=== PATIENT | male | born 1950 | race Caucasian/White ===

== ENCOUNTER 2018-07-21 08:16 | Outpatient (CLI) | payer MEDICARE, BC, SELFPAY ==
[2018-07-21 08:53] LABS: Absolute Basophil Count 0.01 k/cumm (0.0-0.2); Absolute Lymphocyte Count 1.72 k/cumm (1.2-3.4); Absolute Monocyte Count 0.43 k/cumm (0.11-0.7); Absolute Neutrophil Count 2.02 k/cumm (1.2-6.7); Basophils % 0.2; Eosinophils % 2.3; HCT 40.3 % (40.0-50.0); HGB 14.3 g/dL (13.5-17.5); Lymphocytes % 40.2; Mean Corp. HGB Concentration 35.5 g/dL (32.0-36.0); Mean Corpuscular Volume 87.4 fL (80-95); Mean Platelet Volume 9.6 fL (8.0-11.0); Neutrophils % 47.3; Platelet Count 160 x1000/uL (130-400); RBC 4.61 m/cumm (4.50-6.00); RBC Distribution Width 12.3 % (11.8-14.1); White Blood Cell Count 4.28 k/cumm (4.4-10.8)
[2018-07-21 09:39] LABS: Hemoglobin A1C 5.1 % (4.5-6.2)
[2018-07-21 09:49] LABS: ALT 38 U/L (12-78); AST 25 U/L (15-37); Albumin 4.2 g/dL (3.4-5.0); Alkaline Phosphatase 70 U/L (46-116); Anion Gap 6.5 mmol/L (3-11); BUN 17 mg/dL (7-18); Bilirubin, Total 0.7 mg/dL (0.2-1.0); CO2 28.5 mmol/L (21.0-32.0); CREATININE 0.79 mg/dL (0.70-1.30); Calcium 9.2 mg/dL (8.5-10.1); Chloride 103 mmol/L (98-107); Cholesterol 180 mg/dL (50-200); Glucose 95 mg/dL (70-100); HDL Cholesterol 46 mg/dL (40-60); LDL CHOLESTEROL 94 mg/dL (<100); Magnesium 1.8 mg/dL (1.8-2.4); Potassium 4.4 mmol/L (3.5-5.1); Sodium 138 mmol/L (136-145); TSH 1.89 uIU/mL (0.358-3.74); Total Protein 7.2 g/dL (6.4-8.2); Triglyceride 326 mg/dL (30-150)
== END 2018-07-21 08:36 ==
PROVIDERS: Visit Provider Nurse Practitioner Adult Health
DX: E88.81 Metabolic syndrome and other insulin resistance (principal); E78.5 Hyperlipidemia, unspecified; I10 Essential (primary) hypertension; I25.10 Atherosclerotic heart disease of native coronary artery without angina pectoris
CPT/HCPCS: 36415; 80053; 80061; 83721; 83036; 83735; 84443; 85025

== ENCOUNTER 2018-09-29 01:26 | Outpatient (CLI) | payer MEDICARE, BC, SELFPAY ==
--- NOTE | 2018-09-29 16:00 | DI.RAD_ITS ---
SYMPTOMS/DIAGNOSIS: OSTEOPOROSIS SCREENING, ADT FOR PROSTATE CA, C61 DEXA SCAN: DEXA scan was performed according to the usual protocol. Lumbar spine scanning shows a T score of 1.2. Left hip scanning shows a T score of 0.1 with left femoral neck T score of 0. Lateral vertebral scanogram shows questioned minimal anterior compression fracture of what appears to be T11 vertebral body of uncertain age; this may represent developmental wedging. Left forearm scanning shows a T score of 0.7. CONCLUSION: Findings consistent with normal bone density according to the WHO criteria. Question T11 mild vertebral wedging, old fracture versus developmental finding. Radiographs of the thoracolumbar region recommended for further evaluation.
== END 2018-09-29 01:46 ==
PROVIDERS: PCP Nurse Practitioner Adult Health; Visit Provider Radiology Radiation Oncology
DX: C61 Malignant neoplasm of prostate (principal); Z13.820 Encounter for screening for osteoporosis; Z79.899 Other long term (current) drug therapy
CPT/HCPCS: 77080

== ENCOUNTER 2018-10-12 09:17 | Outpatient (CLI) | payer MEDICARE, BC, SELFPAY ==
[2018-10-13 09:14] LABS: PSA, Diagnostic <0.1 ng/ml (0-4.5)
[2018-10-15 12:44] LABS: Testosterone, Total 7.9 ng/dL (240-950)
== END 2018-10-12 09:37 ==
PROVIDERS: PCP Nurse Practitioner Adult Health; Visit Provider Radiology Radiation Oncology
DX: C61 Malignant neoplasm of prostate (principal)
CPT/HCPCS: 36415; 84403; 84153

== ENCOUNTER 2018-12-17 11:32 | Outpatient (CLI) | payer BC, SELFPAY ==
[2018-12-18 09:10] LABS: PSA, Diagnostic <0.1 ng/ml (0-4.5)
[2018-12-20 15:15] LABS: Testosterone, Total 14 ng/dL (240-950)
== END 2018-12-17 11:52 ==
PROVIDERS: PCP Nurse Practitioner Adult Health; Visit Provider Radiology Radiation Oncology
DX: C61 Malignant neoplasm of prostate (principal)
CPT/HCPCS: 36415; 84403; 84153

== ENCOUNTER 2019-01-24 22:47 | Emergency (ER) | payer BC, SELFPAY ==
[2019-01-24] VITALS (9 sets, daily range): BP systolic 110–159; BP diastolic 57–80; PULSE 67–81; RESP 14–18; TEMP 37.1; O2SAT 92–99
--- NOTE | 2019-01-24 22:49 | W.ED.GENAD ---
Discharge Plan Disposition Patient Disposition: HOME Condition: Stable Discharge Details Chief Complaint: Chest Pain Clinical Impression: Chest pain Primary Care Provider: Aniat Sexton ED Provider: Chau Chao Home Meds and New Rx's Prescriptions: No Action atorvastatin [Lipitor] 40 mg Tablet 40 mg PO HS RF: 0 aspirin 325 mg Tablet 325 mg PO HS RF: 0 metoprolol succinate [Toprol XL] 100 mg Tablet Extended Release 24 Hr 100 mg PO DAILY RF: 0 lisinopril 5 mg Tablet 5 mg PO DAILY RF: 0 calcium citrate-vitamin D3 [Citracal + D Maximum] 315-250 mg-unit Tablet 1 tab PO HS RF: 0 tlns-khcsjg-bjsgzkzv-D3-C-Mn 500-400-667 mg-mg-unit Capsule 1 cap PO DAILY RF: 0 multivitamin Capsule 1 cap PO DAILY RF: 0 [place]-3 350 mg-235 mg- 90 mg-597 mg Capsule,Delayed Release(Dr/Ec) 1 cap PO DAILY RF: 0 Lupron Depot (3 month) 11.25 mg Syringe Kit IM DIRECTED RF: 0 Discharge Instructions Instructions: Chest Pain (ED) Additional Instructions: follow up this week with your primary care provider return to the emergency department for worsening pain, vomit, difficulty breathing or you have the pain and become sweaty Medical Decision Making 68 yo male with hx of cad s/p stent to lad per pt in early , htn, hld, who comes in with chief complaint of chest tightness that started this morning with radiation to the left scapula. Denies n/v, diaphoresis, dyspnea. Denies any recent fevers or cough. He is speaking in full sentences in no distress. Will give asa and obtain troponin, ekg nondianostic for acute mi. No evidence of dvt and no hypoxia or tachycardia so doubt PE. No tearing back pain and normal vascular exam so doubt dissection at this time pt remains stable, initial lab work and xray on my read (vrad read still pending) unremarkable. He remains well in no distress. I had discussion with the pt and after detailed discussion of observation admission vs performing delta troponin and ecg in the ED he has chosen to perform delta troponin and ecg after discussing risks and benefits of both and has the capacity to make his own decisions. Will obtain delta troponi nand ecg and continue to monitor pt asymptomatic, second ekg and troponin unchanged. Will d/c home and advised f/u with pcp and return precautions given Differential Diagnosis nstemi, angina, pe, dissection Imaging Data Radiologic Study: Attestation: I personally reviewed and interpreted this imaging study as follows: Imaging: X-Ray Radiologist's impression: no acute findings Lab Data Lab results reviewed: Yes I reviewed the patient's lab results. ECG Data Attestation: I personally reviewed and interpreted this ECG (s) as follows: Prior ECG tracings: not available for review Interpretation: sinus rhyhtm, rate of 65m ,pr 148, qtc 410 2nd ekg shows sinus rhythm, rate of 68, pr 162, qtc 427, no acute st t wave ischemic changes HPI General Mode of arrival: ambulatory. Date/Time Provider Initiated Documentation: 01/24/19 22:49. Limitations to Documentation: no limitations. Information obtained by: patient. History of Present Illness 68 year old M presents to the emergency department with the chief complaint of chest pain, described as moderate, with intensity rated at 6. Quality is described as other (tightness), and is localized to the chest. Patient reports radiation to back. Patient started experiencing this hour(s) (4) and it has been constant. No relieving factors improve symptom(s), No exacerbating factors reported . Patient notes no other symptoms.. Patient did receive the following treatments prior to arrival, other (antacids) Related Data Home Medications Medication Instructions Recorded Confirmed aspirin 325 mg PO HS 01/24/19 01/24/19 atorvastatin [Lipitor] 40 mg PO HS 01/24/19 01/24/19 calcium citrate-vitamin D3 1 tab PO HS 01/24/19 01/24/19 [Citracal + D Maximum] dxqe-wfumpx-ywuzyqoe-D3-C-Mn 1 cap PO DAILY 01/24/19 01/24/19 leuprolide (3 month) [Lupron Depot IM DIRECTED 01/24/19 (3 month)] lisinopril 5 mg PO DAILY 01/24/19 01/24/19 metoprolol succinate [Toprol XL] 100 mg PO DAILY 01/24/19 01/24/19 multivitamin 1 cap PO DAILY 01/24/19 01/24/19 omega 3-jvw-nkw-fish oil [[place]-3] 1 cap PO DAILY 01/24/19 01/24/19 Allergies Allergy/AdvReac Type Severity Reaction Status Date / Time No Known Allergies Allergy Unverified 01/24/19 23:23 Review of Systems Review of Systems All systems reviewed & are unremarkable except as noted in HPI and below Constitutional Denies chills, Denies fever(s) and Denies weakness Cardiovascular Denies dyspnea Respiratory Denies dyspnea Gastrointestinal Denies abdominal pain, Denies nausea and Denies vomiting Musculoskeletal Denies joint swelling Integumentary/Breasts Denies rash Neurologic Denies weakness PFS Social History Smoking/Tobacco Use Status: Never Substance use type: does not use Do you feel safe at home: Yes Do you feel safe in your relationship?: Yes Exam Const General: no acute distress Orientation: alert HENMT Head: normal to inspection Ears: external ears normal General nose exam: external nose normal Mouth: moist mucous membranes Eyes General: appearance normal, both eyes and all related structures Neck Neck: normal visual inspection Resp Effort & Inspection: normal respiratory effort and able to speak in complete sentences Cardio Rate: regular rate Skin General skin exam: no rashes or lesions noted Neuro General: alert and oriented x3 Extrem General: normal to inspection Psych Mental Status: mental status grossly normal
--- NOTE | 2019-01-24 22:56 | ED.GENADUL_ITS ---
Discharge Plan Disposition Patient Disposition: HOME Condition: Stable Discharge Details Chief Complaint: Chest Pain Clinical Impression: Chest pain Primary Care Provider: Anita Sexton ED Provider: Chau Chao Home Meds and New Rx's Prescriptions: No Action atorvastatin [Lipitor] 40 mg Tablet 40 mg PO HS RF: 0 aspirin 325 mg Tablet 325 mg PO HS RF: 0 metoprolol succinate [Toprol XL] 100 mg Tablet Extended Release 24 Hr 100 mg PO DAILY RF: 0 lisinopril 5 mg Tablet 5 mg PO DAILY RF: 0 calcium citrate-vitamin D3 [Citracal + D Maximum] 315-250 mg-unit Tablet 1 tab PO HS RF: 0 pnzz-kowcrn-jwvnxddi-D3-C-Mn 500-400-667 mg-mg-unit Capsule 1 cap PO DAILY RF: 0 multivitamin Capsule 1 cap PO DAILY RF: 0 [place]-3 350 mg-235 mg- 90 mg-597 mg Capsule,Delayed Release(Dr/Ec) 1 cap PO DAILY RF: 0 Lupron Depot (3 month) 11.25 mg Syringe Kit IM DIRECTED RF: 0 Discharge Instructions Instructions: Chest Pain (ED) Additional Instructions: follow up this week with your primary care provider return to the emergency department for worsening pain, vomit, difficulty breathing or you have the pain and become sweaty Medical Decision Making 68 yo male with hx of cad s/p stent to lad per pt in early , htn, hld, who comes in with chief complaint of chest tightness that started this morning with radiation to the left scapula. Denies n/v, diaphoresis, dyspnea. Denies any recent fevers or cough. He is speaking in full sentences in no distress. Will give asa and obtain troponin, ekg nondianostic for acute mi. No evidence of dvt and no hypoxia or tachycardia so doubt PE. No tearing back pain and normal vascular exam so doubt dissection at this time pt remains stable, initial lab work and xray on my read (vrad read still pending) unremarkable. He remains well in no distress. I had discussion with the pt and after detailed discussion of observation admission vs performing delta troponin and ecg in the ED he has chosen to perform delta troponin and ecg after discussing risks and benefits of both and has the capacity to make his own decisions. Will obtain delta troponi nand ecg and continue to monitor pt asymptomatic, second ekg and troponin unchanged. Will d/c home and advised f/u with pcp and return precautions given Differential Diagnosis nstemi, angina, pe, dissection Imaging Data Radiologic Study: Attestation: I personally reviewed and interpreted this imaging study as follows: Imaging: X-Ray Radiologist's impression: no acute findings Lab Data Lab results reviewed: Yes I reviewed the patient's lab results. ECG Data Attestation: I personally reviewed and interpreted this ECG (s) as follows: Prior ECG tracings: not available for review Interpretation: sinus rhyhtm, rate of 65m ,pr 148, qtc 410 2nd ekg shows sinus rhythm, rate of 68, pr 162, qtc 427, no acute st t wave ischemic changes HPI General Mode of arrival: ambulatory . Date/Time Provider Initiated Documentation: 01/24/19 22:49 . Limitations to Documentation: no limitations . Information obtained by: patient . History of Present Illness 68 year old M presents to the emergency department with the chief complaint of chest pain, described as moderate, with intensity rated at 6. Quality is described as other (tightness), and is localized to the chest. Patient reports radiation to back. Patient started experiencing this hour(s) (4) and it has been constant. No relieving factors improve symptom(s), No exacerbating factors reported . Patient notes no other symptoms.. Patient did receive the following treatments prior to arrival, other (antacids) Related Data Home Medications Medication Instructions Recorded Confirmed aspirin 325 mg PO HS 01/24/19 01/24/19 atorvastatin [Lipitor] 40 mg PO HS 01/24/19 01/24/19 calcium citrate-vitamin D3 1 tab PO HS 01/24/19 01/24/19 [Citracal + D Maximum] woyn-uxnjkp-lkmnzbaf-D3-C-Mn 1 cap PO DAILY 01/24/19 01/24/19 leuprolide (3 month) [Lupron Depot IM DIRECTED 01/24/19 (3 month)] lisinopril 5 mg PO DAILY 01/24/19 01/24/19 metoprolol succinate [Toprol XL] 100 mg PO DAILY 01/24/19 01/24/19 multivitamin 1 cap PO DAILY 01/24/19 01/24/19 omega 7-tjo-jkv-fish oil [[place]-3] 1 cap PO DAILY 01/24/19 01/24/19 Allergies Allergy/AdvReac Type Severity Reaction Status Date / Time No Known Allergies Allergy Unverified 01/24/19 23:23 Review of Systems Review of Systems All systems reviewed & are unremarkable except as noted in HPI and below Constitutional Denies chills, Denies fever(s) and Denies weakness Cardiovascular Denies dyspnea Respiratory Denies dyspnea Gastrointestinal Denies abdominal pain, Denies nausea and Denies vomiting Musculoskeletal Denies joint swelling Integumentary/Breasts Denies rash Neurologic Denies weakness PFS Social History Smoking/Tobacco Use Status: Never Substance use type: does not use Do you feel safe at home: Yes Do you feel safe in your relationship?: Yes Exam Const General: no acute distress Orientation: alert HENMT Head: normal to inspection Ears: external ears normal General nose exam: external nose normal Mouth: moist mucous membranes Eyes General: appearance normal, both eyes and all related structures Neck Neck: normal visual inspection Resp Effort & Inspection: normal respiratory effort and able to speak in complete sentences Cardio Rate: regular rate Skin General skin exam: no rashes or lesions noted Neuro General: alert and oriented x3 Extrem General: normal to inspection Psych Mental Status: mental status grossly normal
[2019-01-24] MEDS: Aspirin 81 MG CHEW 324 MG CH (23:05)
[2019-01-24 23:23] LABS: Abs Immature Grans 0.02 k/cumm (0.0-0.09); Absolute Basophil Count 0.01 k/cumm (0.0-0.2); Absolute Lymphocyte Count 1.35 k/cumm (1.2-3.4); Absolute Monocyte Count 0.53 k/cumm (0.11-0.7); Absolute Neutrophil Count 2.78 k/cumm (1.2-6.7); Basophils % 0.2; Eosinophils % 2.1; HCT 37.5 % (40.0-50.0); HGB 13.6 g/dL (13.5-17.5); Immature Grans % 0.4; Lymphocytes % 28.2; Mean Corp. HGB Concentration 36.3 g/dL (32.0-36.0); Mean Corpuscular Hemoglobin 31.6 pg (27.0-33.0); Mean Platelet Volume 9.7 fL (8.0-11.0); Monocytes % 11.1; Platelet Count 134 x1000/uL (130-400); RBC 4.31 m/cumm (4.50-6.00); RBC Distribution Width 12.6 % (11.8-14.1); White Blood Cell Count 4.79 k/cumm (4.4-10.8)
--- NOTE | 2019-01-24 23:35 | DI.RAD_ITS ---
SYMPTOMS/DIAGNOSIS: CHEST PAIN CHEST X-RAY, PORTABLE AP VIEW: No priors. The heart is normal in size. The lungs are clear. The mediastinal structures and pleura appear intact. IMPRESSION: Normal chest.
[2019-01-24 23:38] LABS: ALT 30 U/L (12-78); AST 26 U/L (15-37); Albumin 3.9 g/dL (3.4-5.0); Alkaline Phosphatase 68 U/L (46-116); Anion Gap 6.9 mmol/L (3-11); BUN 18 mg/dL (7-18); CO2 26.1 mmol/L (21.0-32.0); CREATININE 0.77 mg/dL (0.70-1.30); Calcium 8.9 mg/dL (8.5-10.1); Chloride 105 mmol/L (98-107); Glucose 106 mg/dL (70-100); Lipase 158 U/L (73-393); Magnesium 1.9 mg/dL (1.8-2.4); Sodium 138 mmol/L (136-145); Total Protein 7.1 g/dL (6.4-8.2)
[2019-01-24 23:41] LABS: Troponin I < 0.02 ng/mL (0.00-0.06)
[2019-01-24 23:43] LABS: INR 0.9 (0.9-1.1); PTT Activated 20.7 sec (21.0-31.4); Prothrombin Time 9.4 sec (9.3-11.0)
[2019-01-24 23:54] LABS: Bilirubin, Direct 0.13 mg/dL (0.00-0.20); Bilirubin, Total 0.5 mg/dL (0.2-1.0)
[2019-01-25] VITALS (17 sets, daily range): BP systolic 104–123; BP diastolic 56–68; PULSE 57–68; RESP 10–21; O2SAT 94–97
--- NOTE | 2019-01-25 | DI.VRAD_ITS ---
EXAM: XR Chest, 1 View EXAM DATE/TIME: 01/24/2019 10:57 PM CLINICAL HISTORY: 68 years old, male; Pain; Chest pain; Type not specified TECHNIQUE: XR of the chest, 1 view. COMPARISON: No relevant prior studies available. FINDINGS: Lungs: Unremarkable. No consolidation. Pleural space: Unremarkable. No pleural effusion. No pneumothorax. Heart/Mediastinum: Unremarkable. No cardiomegaly. Bones/joints: Unremarkable. IMPRESSION: No acute findings. Dictated and Authenticated by: Chau Sheikh MD. Ordering:RIOS Ritchie MD
--- NOTE | 2019-01-25 00:28 | NUR.NOTE ---
Nursing Note: chest pressure subsided, taking po fluids well, resting quietly, in the room with patient
[2019-01-25 01:28] LABS: Troponin I < 0.02 ng/mL (0.00-0.06)
== END 2019-01-25 01:39 | disposition home or self-care (01) ==
PROVIDERS: Emergency Provider Emergency Medicine; PCP Nurse Practitioner Adult Health
DX: R07.9 Chest pain, unspecified (principal); Z95.5 Presence of coronary angioplasty implant and graft; I10 Essential (primary) hypertension
CPT/HCPCS: 36415; 80053; 80076; 83690; 93005; 99285; 71045; 83735; 84484; 85025; 85610; 85730; 93010; 99284; J3490

== ENCOUNTER 2019-04-22 08:21 | Outpatient (CLI) | payer BC, SELFPAY ==
[2019-04-22 09:28] LABS: Abs Immature Grans 0.01 k/cumm (0.0-0.09); Absolute Basophil Count 0.01 k/cumm (0.0-0.2); Absolute Eosinophil Count 0.09 k/cumm (0.0-0.7); Absolute Lymphocyte Count 0.89 k/cumm (1.2-3.4); Absolute Monocyte Count 0.28 k/cumm (0.11-0.7); Absolute Neutrophil Count 1.56 k/cumm (1.2-6.7); Basophils % 0.4; Eosinophils % 3.2; HGB 13.5 g/dL (13.5-17.5); Immature Grans % 0.4; Lymphocytes % 31.3; Mean Corp. HGB Concentration 35.5 g/dL (32.0-36.0); Mean Corpuscular Hemoglobin 31.4 pg (27.0-33.0); Mean Corpuscular Volume 88.4 fL (80-95); Mean Platelet Volume 9.6 fL (8.0-11.0); Monocytes % 9.9; Neutrophils % 54.8; Platelet Count 137 x1000/uL (130-400); RBC Distribution Width 12.9 % (11.8-14.1); White Blood Cell Count 2.84 k/cumm (4.4-10.8)
[2019-04-22 09:54] LABS: ALT 44 U/L (12-78); AST 28 U/L (15-37); Alkaline Phosphatase 77 U/L (46-116); Anion Gap 7.9 mmol/L (3-11); BUN 13 mg/dL (7-18); Bilirubin, Total 0.5 mg/dL (0.2-1.0); CO2 28.1 mmol/L (21.0-32.0); CREATININE 0.75 mg/dL (0.70-1.30); Calcium 9.3 mg/dL (8.5-10.1); Chloride 105 mmol/L (98-107); Glucose 98 mg/dL (70-100); Potassium 4.3 mmol/L (3.5-5.1); Sodium 141 mmol/L (136-145); Total Protein 6.8 g/dL (6.4-8.2)
[2019-04-23 10:14] LABS: PSA, Diagnostic <0.1 ng/ml (0-4.5)
[2019-04-24 13:51] LABS: Testosterone, Total 16 ng/dL (240-950)
== END 2019-04-22 08:41 ==
PROVIDERS: PCP Nurse Practitioner Adult Health; Visit Provider Nurse Practitioner
DX: C61 Malignant neoplasm of prostate (principal)
CPT/HCPCS: 36415; 80053; 84403; 84153; 85025

== ENCOUNTER 2019-08-12 08:37 | Outpatient (CLI) | payer BC, SELFPAY ==
[2019-08-12 09:42] LABS: Abs Immature Grans 0.01 k/cumm (0.0-0.09); Absolute Basophil Count 0.01 k/cumm (0.0-0.2); Absolute Eosinophil Count 0.04 k/cumm (0.0-0.7); Absolute Lymphocyte Count 0.97 k/cumm (1.2-3.4); Absolute Monocyte Count 0.35 k/cumm (0.11-0.7); Absolute Neutrophil Count 1.55 k/cumm (1.2-6.7); Basophils % 0.3; Eosinophils % 1.4; HCT 38.6 % (40.0-50.0); HGB 13.6 g/dL (13.5-17.5); Immature Grans % 0.3; Lymphocytes % 33.1; Mean Corp. HGB Concentration 35.2 g/dL (32.0-36.0); Mean Corpuscular Hemoglobin 31.2 pg (27.0-33.0); Mean Corpuscular Volume 88.5 fL (80-95); Mean Platelet Volume 9.9 fL (8.0-11.0); Monocytes % 11.9; Platelet Count 162 x1000/uL (130-400); RBC 4.36 m/cumm (4.50-6.00); RBC Distribution Width 12.8 % (11.8-14.1); White Blood Cell Count 2.93 k/cumm (4.4-10.8)
[2019-08-12 10:16] LABS: ALT 40 U/L (16-63); AST 27 U/L (15-37); Albumin 4.1 g/dL (3.4-5.0); Alkaline Phosphatase 71 U/L (46-116); Anion Gap 8.7 mmol/L (3-11); BUN 18 mg/dL (7-18); Bilirubin, Total 0.7 mg/dL (0.2-1.0); CO2 27.3 mmol/L (21.0-32.0); CREATININE 0.79 mg/dL (0.70-1.30); Calcium 9.1 mg/dL (8.5-10.1); Chloride 107 mmol/L (98-107); Glucose 94 mg/dL (70-100); Potassium 4.4 mmol/L (3.5-5.1); Sodium 143 mmol/L (136-145)
[2019-08-13 08:44] LABS: PSA, Diagnostic <0.1 ng/ml (0-4.5)
[2019-08-14 07:56] LABS: Testosterone, Total 19 ng/dL (240-950)
== END 2019-08-12 08:57 ==
PROVIDERS: PCP Family Medicine; Visit Provider Nurse Practitioner
DX: C61 Malignant neoplasm of prostate (principal); I10 Essential (primary) hypertension; E78.5 Hyperlipidemia, unspecified
CPT/HCPCS: 36415; 80053; 84403; 84153; 85025

== ENCOUNTER 2019-12-16 02:29 | Outpatient (CLI) | payer MEDICARE, SELFPAY ==
[2019-12-16 07:41] LABS: Absolute Basophil Count 0.01 k/cumm (0.0-0.2); Absolute Eosinophil Count 0.06 k/cumm (0.0-0.7); Absolute Lymphocyte Count 1.17 k/cumm (1.2-3.4); Absolute Monocyte Count 0.38 k/cumm (0.11-0.7); Basophils % 0.3; Eosinophils % 1.6; HCT 39.8 % (40.0-50.0); HGB 14.2 g/dL (13.5-17.5); Lymphocytes % 31.5; Mean Corp. HGB Concentration 35.7 g/dL (32.0-36.0); Mean Corpuscular Hemoglobin 31.3 pg (27.0-33.0); Mean Corpuscular Volume 87.7 fL (80-95); Mean Platelet Volume 9.1 fL (8.0-11.0); Monocytes % 10.2; Neutrophils % 56.4; Platelet Count 159 x1000/uL (130-400); RBC 4.54 m/cumm (4.50-6.00); RBC Distribution Width 12.7 % (11.8-14.1); White Blood Cell Count 3.72 k/cumm (4.4-10.8)
[2019-12-16 08:21] LABS: ALT 39 U/L (16-63); AST 25 U/L (15-37); Albumin 4.3 g/dL (3.4-5.0); Alkaline Phosphatase 70 U/L (46-116); Anion Gap 10.6 mmol/L (3-11); BUN 18 mg/dL (7-18); Bilirubin, Total 0.6 mg/dL (0.2-1.0); CO2 27.4 mmol/L (21.0-32.0); CREATININE 0.88 mg/dL (0.70-1.30); Calcium 9.2 mg/dL (8.5-10.1); Chloride 105 mmol/L (98-107); Glucose 95 mg/dL (74-106); Potassium 4.3 mmol/L (3.5-5.1); Sodium 143 mmol/L (136-145); Total Protein 7.1 g/dL (6.4-8.2)
[2019-12-17 10:11] LABS: PSA, Diagnostic <0.1 ng/mL (0.0-4.5)
[2019-12-20 16:16] LABS: Testosterone, Total 14 ng/dL (240-950)
== END 2019-12-16 02:49 ==
PROVIDERS: PCP Family Medicine; Visit Provider Nurse Practitioner
DX: C61 Malignant neoplasm of prostate (principal)
CPT/HCPCS: 36415; 80053; 84403; 84153; 85025

== ENCOUNTER 2020-03-20 13:06 | Outpatient (REF) | payer MEDICARE, SELFPAY | END 2020-03-20 13:26 | LOC: NCHCN 13:06 | PROVIDERS: PCP Family Medicine; Visit Provider Family Medicine | DX: R31.9 Hematuria, unspecified (principal) | CPT/HCPCS: 87086 ==

== ENCOUNTER 2020-04-28 03:43 | Outpatient (CLI) | payer MEDICARE, SELFPAY ==
[2020-04-28 09:39] LABS: Abs Immature Grans 0.01 k/cumm (0.0-0.09); Absolute Basophil Count 0.01 k/cumm (0.0-0.2); Absolute Eosinophil Count 0.06 k/cumm (0.0-0.7); Absolute Lymphocyte Count 1.57 k/cumm (1.2-3.4); Absolute Monocyte Count 0.46 k/cumm (0.11-0.7); Absolute Neutrophil Count 1.95 k/cumm (1.2-6.7); Basophils % 0.2; Eosinophils % 1.5; HCT 39.2 % (40.0-50.0); Immature Grans % 0.2 %; Lymphocytes % 38.7; Mean Corp. HGB Concentration 35.7 g/dL (32.0-36.0); Mean Corpuscular Hemoglobin 31.5 pg (27.0-33.0); Mean Corpuscular Volume 88.3 fL (80-95); Mean Platelet Volume 9.8 fL (8.0-11.0); Monocytes % 11.3; Neutrophils % 48.1; Platelet Count 160 x1000/uL (130-400); RBC 4.44 m/cumm (4.50-6.00); RBC Distribution Width 12.7 % (11.8-14.1); White Blood Cell Count 4.06 k/cumm (4.4-10.8)
[2020-04-28 09:49] LABS: ALT 43 U/L (16-63); AST 29 U/L (15-37); Albumin 4.3 g/dL (3.4-5.0); Alkaline Phosphatase 69 U/L (46-116); Anion Gap 8.2 mmol/L (3-11); BUN 20 mg/dL (7-18); Bilirubin, Total 0.7 mg/dL (0.2-1.0); CO2 26.8 mmol/L (21.0-32.0); CREATININE 0.86 mg/dL (0.70-1.30); Calcium 9.4 mg/dL (8.5-10.1); Chloride 105 mmol/L (98-107); Glucose 103 mg/dL (74-106); Potassium 4.7 mmol/L (3.5-5.1); Sodium 140 mmol/L (136-145); Total Protein 7.6 g/dL (6.4-8.2)
[2020-05-01 13:44] LABS: PSA, Ultrasensitive <0.01 ng/mL (<= 4.5)
[2020-05-03 03:57] LABS: Testosterone, Total 14 ng/dL (240-950)
== END 2020-04-28 04:03 ==
PROVIDERS: PCP Family Medicine; Visit Provider Nurse Practitioner
DX: C61 Malignant neoplasm of prostate (principal)
CPT/HCPCS: 36415; 80053; 84153; 84403; 85025

== ENCOUNTER 2020-10-19 01:40 | Outpatient (CLI) | payer MEDICARE, SELFPAY ==
--- NOTE | 2020-10-19 | DI.DEXA_ITS ---
EXAM: XR DEXA BONE DENSITY W/WO EMANUEL CLINICAL HISTORY: PROSTATE CA,C61,OSTEOPOROSIS DUE TO ANDROGEN THERAPY,M81.8,T38.7X5A, ? TECHNIQUE: Routine DEXA evaluation of the lumbar spine, hip, or forearm. COMPARISON: Prior DXA scan September 2018 FINDINGS: Lumbar Spine total T-score: 0.9 prior 2018 reading was 1.2 Hip total T-score:Minus 0.1 prior 2018 reading was 0.1 Forearm total T-score: -0.4 IMPRESSION: Bone mineral density measures in the normal range. Fracture risk is low. Note: Any spine fracture indicates 5x risk for subsequent spine fracture and 2x risk for subsequent h ip fracture. World Health Organization criteria for BMD interpretation classify patients: Normal...... T- Score at or above -1.0 Osteopenic... T- Score between -1.0 and -2.5 Osteoporosis... T-Score at or below -2.5
== END 2020-10-19 02:00 ==
PROVIDERS: PCP Family Medicine; Visit Provider Nurse Practitioner Family
DX: M81.8 Other osteoporosis without current pathological fracture (principal); T38.7X5A Adverse effect of androgens and anabolic congeners, initial encounter; C61 Malignant neoplasm of prostate
CPT/HCPCS: 77080

== ENCOUNTER 2020-10-19 05:06 | Outpatient (CLI) | payer MEDICARE, SELFPAY ==
[2020-10-19 13:39] LABS: Abs Immature Grans 0.01 10^3/uL (0.0-0.06); Absolute Basophil Count 0.02 10^3/uL (0.0-0.2); Absolute Eosinophil Count 0.08 10^3/uL (0.0-0.7); Absolute Lymphocyte Count 1.49 10^3/uL (1.2-3.4); Absolute Monocyte Count 0.34 10^3/uL (0.1-0.8); Absolute Neutrophil Count 3.09 10^3/uL (1.2-6.7); Basophils % 0.4; Eosinophils % 1.6; HCT 38.5 % (40.0-50.0); HGB 13.7 g/dL (13.5-17.5); Immature Grans % 0.2; Lymphocytes % 29.6; MCH 31.6 pg (27.0-33.0); MCHC 35.6 % (32.0-36.0); MCV 88.7 fL (80-95); MPV 9.7 fL (8.0-11.0); Monocytes % 6.8; Neutrophils % 61.4; Nucleated RBC 0 %; Platelet Count 159 10^3/uL (130-400); RBC 4.34 10^6/uL (4.36-5.78); RDW 12.2 % (11.8-14.1); RDW-SD 39.7 fL; WBC 5.03 10^3/uL (4.4-10.8)
[2020-10-19 14:23] LABS: ALT 43 U/L (16-63); AST 29 U/L (15-37); Albumin 4.2 g/dL (3.4-5.0); Alkaline Phosphatase 70 U/L (46-116); Anion Gap 8.1 mmol/L (3-11); BUN 17 mg/dL (7-18); Bilirubin, Total 0.5 mg/dL (0.2-1.0); CO2 26.9 mmol/L (21.0-32.0); Calcium 8.9 mg/dL (8.5-10.1); Chloride 105 mmol/L (98-107); Glucose 111 mg/dL (74-106); Sodium 140 mmol/L (136-145)
[2020-10-20 18:41] LABS: PSA, Ultrasensitive <0.01 ng/mL (<= 4.5)
[2020-10-22 15:10] LABS: Testosterone, Total 48 ng/dL (240-950)
== END 2020-10-19 05:26 ==
PROVIDERS: PCP Family Medicine; Visit Provider Nurse Practitioner Family
DX: C61 Malignant neoplasm of prostate (principal); T38.7X5A Adverse effect of androgens and anabolic congeners, initial encounter; M81.8 Other osteoporosis without current pathological fracture
CPT/HCPCS: 36415; 77080; 80053; 84153; 84403; 85025

== ENCOUNTER 2021-05-02 02:09 | Outpatient (CLI) | payer OTHER, SELFPAY ==
[2021-05-03 12:53] LABS: PSA, Ultrasensitive <0.01 ng/mL (<= 4.5)
[2021-05-04 11:47] LABS: Testosterone, Total 185 ng/dL (240-950)
== END 2021-05-02 02:10 | disposition home or self-care (01) ==
LOC: LBO 02:09
PROVIDERS: PCP Family Medicine; Visit Provider Nurse Practitioner Family
DX: C61 Malignant neoplasm of prostate (principal)
CPT/HCPCS: 36415; 84153; 84403

== ENCOUNTER 2021-11-12 02:09 | Outpatient (CLI) | payer OTHER, SELFPAY ==
[2021-11-13 15:02] LABS: PSA, Ultrasensitive 0.03 ng/mL (<= 6.5)
[2021-11-15 12:12] LABS: Testosterone, Total 258 ng/dL (240-950)
== END 2021-11-12 02:10 | disposition home or self-care (01) ==
PROVIDERS: PCP Family Medicine; Visit Provider Nurse Practitioner Family
DX: C61 Malignant neoplasm of prostate (principal)
CPT/HCPCS: 36415; 84153; 84403

== ENCOUNTER 2021-11-23 17:09 | Outpatient (REF) | payer OTHER, SELFPAY ==
[2021-11-23 21:56] LABS: ALT 44 U/L (16-63); AST 31 U/L (15-37); Albumin 4.4 g/dL (3.4-5.0); Alkaline Phosphatase 55 U/L (46-116); Anion Gap 9.1 mmol/L (3-11); BUN 18 mg/dL (7-18); Bilirubin, Total 0.7 mg/dL (0.2-1.0); CO2 27.9 mmol/L (21.0-32.0); CREATININE 1.1 mg/dL (0.70-1.30); Calcium 9.4 mg/dL (8.5-10.1); Calculated LDL 59 mg/dL (<100); Chloride 104 mmol/L (98-107); Cholesterol 157 mg/dL (<200); Glucose 103 mg/dL (74-106); HDL Cholesterol 47 mg/dL (40-60); Sodium 141 mmol/L (136-145); Total Protein 7.3 g/dL (6.4-8.2); Triglyceride 255 mg/dL (<150)
[2021-11-26 01:16] LABS: Vitamin D 25 Total 32.2 ng/mL (30-100)
== END 2021-11-23 17:10 | disposition home or self-care (01) ==
LOC: NCHCN 17:09
PROVIDERS: PCP Family Medicine; Visit Provider Family Medicine
DX: I25.10 Atherosclerotic heart disease of native coronary artery without angina pectoris (principal); C61 Malignant neoplasm of prostate; M81.8 Other osteoporosis without current pathological fracture
CPT/HCPCS: 80053; 80061; 82306

== ENCOUNTER 2022-05-08 01:54 | Outpatient (CLI) | payer OTHER, SELFPAY ==
[2022-05-09 18:21] LABS: PSA, Ultrasensitive 0.09 ng/mL (<= 6.5)
[2022-05-10 21:28] LABS: Testosterone, Total 265 ng/dL (240-950)
== END 2022-05-08 01:55 | disposition home or self-care (01) ==
LOC: LBO 01:54
PROVIDERS: PCP Family Medicine; Visit Provider Nurse Practitioner Family
DX: C61 Malignant neoplasm of prostate (principal)
CPT/HCPCS: 36415; 84153; 84403

== ENCOUNTER 2022-08-21 20:59 | Outpatient (REF) | payer OTHER, SELFPAY ==
[2022-08-21 15:30] LABS: ALT 43 U/L (16-63); AST 30 U/L (15-37); Albumin 4.2 g/dL (3.4-5.0); Alkaline Phosphatase 55 U/L (46-116); Anion Gap 8.9 mmol/L (3-11); BUN 17 mg/dL (7-18); Bilirubin, Total 0.7 mg/dL (0.2-1.0); CO2 28.1 mmol/L (21.0-32.0); CREATININE 0.7 mg/dL (0.70-1.30); Calcium 9.1 mg/dL (8.5-10.1); Chloride 104 mmol/L (98-107); Estimated GFR 98.51 (mL/min/1.73m2); Glucose 90 mg/dL (74-106); Potassium 4.8 mmol/L (3.5-5.1); Sodium 141 mmol/L (136-145)
[2022-08-21 22:08] LABS: PSA, Diagnostic 0.2 ng/mL (<=6.5)
[2022-08-29 17:05] LABS: Testosterone, Free 6.01 ng/dL (3.28-12.2); Testosterone, Total 269 ng/dL (240-950)
== END 2022-08-21 21:00 | disposition home or self-care (01) ==
LOC: NCHCN 20:59
PROVIDERS: PCP Family Medicine; Visit Provider Family Medicine
DX: C61 Malignant neoplasm of prostate (principal)
CPT/HCPCS: 80053; 84402; 84403; 84153

== ENCOUNTER 2022-11-14 02:24 | Outpatient (CLI) | payer OTHER, SELFPAY ==
[2022-11-14 10:21] LABS: Abs Immature Grans 0.02 10^3/uL (0.0-0.06); Absolute Basophil Count 0.01 10^3/uL (0.0-0.2); Absolute Eosinophil Count 0.06 10^3/uL (0.0-0.7); Absolute Lymphocyte Count 1.25 10^3/uL (1.2-3.4); Absolute Monocyte Count 0.71 10^3/uL (0.1-0.8); Absolute Neutrophil Count 5.08 10^3/uL (1.2-6.7); Basophils % 0.1; Eosinophils % 0.8; HCT 40.9 % (40.0-50.0); HGB 14.1 g/dL (13.5-17.5); Immature Grans % 0.3; Lymphocytes % 17.5; MCH 31.1 pg (27.0-33.0); MCHC 34.5 % (32.0-36.0); MCV 90 fL (80-95); MPV 9.8 fL (8.0-11.0); Neutrophils % 71.3; Platelet Count 141 10^3/uL (130-400); RBC 4.54 10^6/uL (4.36-5.78); RDW 12.1 % (11.8-14.1); RDW-SD 39.3 fL; WBC 7.13 10^3/uL (4.4-10.8)
[2022-11-14 10:27] LABS: Bilirubin Negative (Negative); Blood Small (Negative); Clarity Clear (Clear); Glucose Negative (Negative); Ketones Negative (Negative); Leukocyte Esterase Small (Negative); Nitrite Positive (Negative); Specific Gravity 1.025 (1.005-1.025); Urobilinogen 0.2 EU/dL (Up TO 0.2); pH 5.5 (5-8)
[2022-11-14 10:39] LABS: Epithelial Cells Negative HPF (Negative); RBC 0-2 HPF (0-2); WBC 20-50 HPF (0-5)
[2022-11-14 10:40] LABS: Bacteria Moderate HPF (Negative); C & S Indicated? Yes; Casts Negative LPF (Negative); Crystals Negative HPF (Negative); Mucus Negative (Negative)
[2022-11-14 10:55] LABS: ALT 29 U/L (16-63); AST 23 U/L (15-37); Alkaline Phosphatase 59 U/L (46-116); Anion Gap 5.6 mmol/L (3-11); BUN 16 mg/dL (7-18); Bilirubin, Total 0.8 mg/dL (0.2-1.0); CO2 29.4 mmol/L (21.0-32.0); CREATININE 0.9 mg/dL (0.70-1.30); Calcium 9.1 mg/dL (8.5-10.1); Chloride 105 mmol/L (98-107); Estimated GFR 91.31 (mL/min/1.73m2); Glucose 112 mg/dL (74-106); Potassium 4.1 mmol/L (3.5-5.1); Sodium 140 mmol/L (136-145); Total Protein 7.5 g/dL (6.4-8.2)
[2022-11-15 16:11] LABS: PSA, Ultrasensitive 0.24 ng/mL (<= 6.5)
[2022-11-17 13:02] LABS: Testosterone, Total 203 ng/dL (240-950)
== END 2022-11-14 02:25 | disposition home or self-care (01) ==
LOC: LBO 02:24
PROVIDERS: PCP Family Medicine; Visit Provider Internal Medicine
DX: C61 Malignant neoplasm of prostate (principal); R31.9 Hematuria, unspecified
CPT/HCPCS: 36415; 80053; 84153; 84403; 87077; 81003; 81015; 85025; 87086; 87186

== ENCOUNTER 2023-02-12 23:29 | Emergency (ER) | payer MEDICARE, SELFPAY ==
[2023-02-12 23:32] VITALS: BP 150/77; PULSE 73; RESP 16; TEMP 36.8; O2SAT 98
--- NOTE | 2023-02-12 23:32 | ED.GENADUL_ITS ---
Discharge Plan Disposition Patient Disposition: Home Condition: Stable Discharge Details Clinical Impression: Cystitis, Acute cystitis, Complicated UTI (urinary tract infection) Primary Care Provider: Bettye Hernandez ED Provider: Robson Bates Home Meds and New Rx's Prescriptions: New cefpodoxime 200 mg tablet 200 mg PO Q12H 14 Days Qty: 28 0RF Rx Instructions: must administer with a meal/food Continued aspirin 81 mg tablet,delayed release (DR/EC) 81 mg PO DAILY lutein 20 mg capsule 20 mg PO DAILY Rx Instructions: give with meal/snack diclofenac sodium-menthol 1.5-10 % combo pack topical DIRECTED PRN acetaminophen 500 mg capsule 500 mg PO DIRECTED PRN ibuprofen 200 mg capsule 200 mg PO DIRECTED PRN Rx Instructions: 400-600mg prn joint pain krill oil 500 mg capsule PO DAILY atorvastatin [Lipitor] 40 mg tablet 40 mg PO DAILY Qty: 90 3RF lisinopril 5 mg tablet 5 mg PO DAILY Qty: 90 3RF metoprolol succinate [Toprol XL] 100 mg tablet extended release 24 hr 100 mg PO DAILY Qty: 90 3RF fpvh-uhirom-yljmialp-D3-C-Mn 500-400-667 mg-mg-unit Capsule 1 cap PO DAILY multivitamin Capsule 1 cap PO DAILY Discharge Instructions Instructions: Urinary Tract Infection in Men (ED) Additional Instructions: Please read all of the information that accompanies these instructions. You were seen in the emergency department for your bleeding while urinating and urinary frequency. You were diagnosed with a urinary tract infection. The urology team will call you later this week to set up an appointment within the next week. Please return to the emergency department if you develop nausea or vomiting which prevents you from keeping antibiotics down, if you develop fevers, or if you develop abdominal pain. Medical Decision Making This is a quite well-appearing normothermic and not tachycardic 72-year-old male with baseline urinary incontinence now with urinary urgency frequency and clot hematuria. We will obtain bladder scan to ensure that patient does not have acute urinary retention although he is not endorsing any abdominal pain that would suggest urinary retention. He is not having any flank pain nor any systemic symptoms of fevers to suggest ureterolithiasis nor pyelonephritis. My suspicion is that his E. coli bacteriuria from last month was an adequately treated with nitrofurantoin for 5 days. Anticipate treating with cefpodoxime mean for 14 days given most likely E. coli bacteriuria. No abdominal pain nor fevers to suggest prostatitis. No new sexual contacts to suggest sexually transmitted infection. No flank pain to suggest ureterolithiasis. Patient's presentation is not consistent with sepsis so I did not order a lactate, blood cultures, nor treat empirically with IV antibiotics. Patient has not been vom iting and had a normal creatinine last month so my suspicion for acute electrolyte abnormalities is exceedingly low and as result we will defer laboratory evaluation at this point in time. Given the patient's age and sex if he does have cystitis his infection will be considered complicated and I will reach out to urology for follow-up with [facility] worker Tanesha. 12 AM Postvoid residual 64 cc not consistent with acute urinary retention. We will proceed with empiric trial of expectant outpatient management on treatment as I feel that the risks of Pierre catheter insertion at this early juncture outweigh the benefits. We will provide patient return indications including any inability to void, any abdominal pain, and any nausea or vomiting which would prevent him from being adherent with his outpatient cefpodoxime. I also explained to the patient the follow-up process for urine culture results and advised him that he would receive a call from the emergency department team if his cefpodoxime was not a sensitive choice for his bacteriuria. Patient understood his return indications and was discharged with his . Chronic conditions affecting the care of the patient: Remote prostatectomy and history of prostate cancer History obtained from an outside historian: N/A External record review: [facility] chart reviewed Medications: Oral antibiotics Social determinants of health affecting disposition: N/A Management discussed with: N/A Treatment/interventions considered: Laboratory evaluation deferred Response to therapies provided: We will monitor as an outpatient. HPI General Date/Time Provider Initiated Documentation: 02/12/23 23:30 . HPI Narrative: This is a 72-year-old male with a history of prostatectomy in 2018 secondary to prostate cancer with longstanding urinary incontinence using 3-4 pads per day now with urinary urgency and hematuria. Patient notes that last month he was treated with 5 days of nitrofurantoin in the setting of urinary tract infection by his former primary care provider. He reports that he now has a new primary care provider. He notes that since 7 PM this evening he has had urgency and urinary frequency. He also noticed some clots and blood in his urine. He has been urinating every 10 minutes or so but very low volumes. He is not having any abdominal pain nausea chest pain shortness of breath nor fevers. He did have some chills earlier this evening. He said the last month he had flank pain when he was diagnosed with a urinary tract infection. In the he had ureterallithiasis and reports that this evening his presentation does not feel similar to his prior episode of ureterolithiasis. Related Data Home Medications Medication Instructions Recorded Confirmed glucosamine 500 1 cap PO DAILY 01/24/19 02/12/23 dy-rnhjsvidf-nejkidth comp 400 mg-D3 667 unit-C-Mn cap multivitamin 1 cap PO DAILY 01/24/19 02/12/23 acetaminophen 500 mg capsule 500 mg PO DIRECTED PRN 12/12/21 02/12/23 diclofenac sodium 1.5 % topical pkg topical DIRECTED PRN 12/12/21 01/09/23 drops-menthol 10 % roll-on combo pack ibuprofen 200 mg capsule 200 mg PO DIRECTED PRN 12/12/21 02/12/23 krill oil 500 mg capsule mg PO DAILY 12/12/21 01/09/23 lutein 20 mg capsule 20 mg PO DAILY 12/12/21 02/12/23 aspirin 81 mg tablet,delayed 81 mg PO DAILY 01/09/23 02/12/23 release atorvastatin 40 mg tablet (Lipitor) 40 mg PO DAILY #90 tabs 01/24/23 02/12/23 lisinopril 5 mg tablet 5 mg PO DAILY #90 tabs 01/24/23 02/12/23 metoprolol succinate 100 mg 100 mg PO DAILY #90 tabs 01/24/23 02/12/23 tablet,extended release 24 hr (Toprol XL) cefpodoxime 200 mg tablet 200 mg PO Q12H 14 days #28 tabs 02/12/23 Previous Rx's Medication Instructions Recorded atorvastatin 40 mg tablet (Lipitor) 40 mg PO DAILY #90 tabs 01/24/23 lisinopril 5 mg tablet 5 mg PO DAILY #90 tabs 01/24/23 metoprolol succinate 100 mg 100 mg PO DAILY #90 tabs 01/24/23 tablet,extended release 24 hr (Toprol XL) cefpodoxime 200 mg tablet 200 mg PO Q12H 14 days #28 tabs 02/12/23 Allergies Allergy/AdvReac Type Severity Reaction Status Date / Time finasteride [From Proscar] Allergy Intermediate Verified 01/09/23 13:05 simvastatin Allergy Intermediate Verified 01/09/23 13:05 ezetimibe [From Zetia] AdvReac MUSCLE Verified 01/09/23 13:05 ACHES General SOLO: 2 PFSH All Active Problems (Updated 02/13/23 @ 00:05 by SHAILESH MARTIN) Osteoarthritis (Chronic) R knee ([facility] in the past) Obesity (Chronic) Hyperlipidemia (Acute) Hypertension (Chronic) History of prostate cancer (Acute 09/22/17) S/p prostatectomy, radiation, & Lupron; completed 11/19/17 Last Lupron 05/04/20 Erectile dysfunction (Acute) Coronary artery disease (Chronic ~2000) [facility] s/p stent placement x1 Homocystinuria (Acute) Spinal stenosis (Chronic) Hard of hearing (Chronic) Trigger finger, right ring finger (Acute) Medical History Eczema Ankles Brown's neuroma of both feet Myocardial infarction (~2000) Surgical History Hx of appendectomy Hx of cardiac catheterization 2004, no stents placed this time Hx of colonoscopy (11/19/17) 2012 Hx of heart artery stent Hx of left knee surgery partial meniscus tear Hx of prostatectomy (11/19/17) Hx of tonsillectomy Hx of vasectomy Family History Father Substance use disorder Hypertension Sister Depression Diabetes Mother Heart disease Hypertension Social History (Updated 01/09/23 @ 15:49 by Bettye Hernandez NP) Smoking/Tobacco Use Status: Never Smoking risk assessment performed?: Yes Alcohol Intake: current Alcohol Intake frequency: a few times a month Alcohol type: wine Drug use: Never Substance use type: does not use Adopted: No Caregiver/Support person: No Foster care: No Household members: spouse Housing: house Number of Children: 2 number of grandchildren: 4 Communication Needs: Hard of Hearing Education Level: vocational Do you need help understanding health information?: Rarely current occupation: Retired ([employer]) Pets and animals: Yes Pets and animals: dog(s) and farm animals Sexually active: Yes Do you think of yourself as: straight/heterosexual Current gender identity: male What is your relationship status?: How often do you talk on the phone with friends or family?: once per week How often do you get together with friends or relatives?: twice per week Do you belong to any clubs or organized social groups?: yes Panel score (0-1 are the most socially isolated patients): 3 What type of physical activity do you participate in: other Details: pickleball Duration: 60-90 minutes/day Frequency: 1-2 times per week Tamara/Taoism: Anabaptism Special tamara needs: No Seatbelt use: always Helmet use: Yes Helmet use: always Drive intox 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 Head: Normocephalic, atraumatic Ear, nose, mouth, throat: Grossly normal inspection. Normal voice, handling secretions normally. Neck: Trachea midline. Cardiovascular: Well-perfused distal extremities. Regular rate and rhythm Respiratory: Nonlabored respiration. Clear lungs bilaterally Gastrointestinal: Nondistended abdomen. Soft nontender abdomen. No CVA tenderness bilaterally. Musculoskeletal: No edema. Moving all 4 extremities spontaneously. Skin: Normal for age and race, grossly normal temperature and turgor. No acute rash. Neurologic: Alert and appropriate, no apparent acute deficits. Psychiatric: Mood and manner are appropriate. Grooming and personal hygiene are appropriate.
[2023-02-12 23:47] LABS: Bilirubin Negative (Negative); Blood Large (Negative); Clarity Cloudy (Clear); Glucose Negative (Negative); Ketones Negative (Negative); Leukocyte Esterase Small (Negative); Nitrite Positive (Negative); Specific Gravity 1.025 (1.005-1.025); Urobilinogen 0.2 mg/dL (Up to 0.2)
[2023-02-12 23:54] LABS: RBC >50 HPF (0-2)
[2023-02-12 23:55] LABS: C & S Indicated? Yes
--- NOTE | 2023-02-12 23:59 | NUR.NOTE ---
Pt placed on referral list for urology for a complicated UTI per Dr. DENNIS
[2023-02-13] MEDS: Cefpodoxime 200 MG TAB PO (00:07)
== END 2023-02-13 00:11 | disposition home or self-care (01) ==
PROVIDERS: Emergency Provider Emergency Medicine; PCP Nurse Practitioner Family
DX: N30.01 Acute cystitis with hematuria (principal); I25.2 Old myocardial infarction; Z79.82 Long term (current) use of aspirin
CPT/HCPCS: 87077; 99283; 81003; 81015; 87086; 87186; 99284

== ENCOUNTER 2023-02-13 03:27 | Outpatient (CLI) | payer MEDICARE, SELFPAY ==
[2023-02-13 07:46] LABS: Abs Immature Grans 0.03 10^3/uL (0.0-0.06); Absolute Basophil Count 0.03 10^3/uL (0.0-0.2); Absolute Eosinophil Count 0.09 10^3/uL (0.0-0.7); Absolute Lymphocyte Count 1.22 10^3/uL (1.2-3.4); Absolute Monocyte Count 0.72 10^3/uL (0.1-0.8); Absolute Neutrophil Count 6.42 10^3/uL (1.2-6.7); Basophils % 0.4; Eosinophils % 1.1; HCT 40.8 % (40.0-50.0); HGB 14.5 g/dL (13.5-17.5); Immature Grans % 0.4; Lymphocytes % 14.3; MCH 31.3 pg (27.0-33.0); MCHC 35.5 % (32.0-36.0); MCV 88 fL (80-95); MPV 9.8 fL (8.0-11.0); Monocytes % 8.5; Neutrophils % 75.3; Platelet Count 150 10^3/uL (130-400); RBC 4.64 10^6/uL (4.36-5.78); RDW 12.7 % (11.8-14.1); RDW-SD 40.8 fL; WBC 8.51 10^3/uL (4.4-10.8)
[2023-02-13 08:04] LABS: ALT 35 U/L (16-63); AST 24 U/L (15-37); Alkaline Phosphatase 60 U/L (46-116); BUN 15 mg/dL (7-18); CREATININE 0.9 mg/dL (0.70-1.30); Calcium 9.2 mg/dL (8.5-10.1); Calculated LDL 77 mg/dL (<100); Chloride 105 mmol/L (98-107); Cholesterol 152 mg/dL (<200); Estimated GFR 91.31 (mL/min/1.73m2); Glucose 102 mg/dL (74-106); HDL Cholesterol 59 mg/dL (40-60); Potassium 4.3 mmol/L (3.5-5.1); Sodium 142 mmol/L (136-145); Total Protein 7.2 g/dL (6.4-8.2); Triglyceride 80 mg/dL (<150)
[2023-02-14 10:26] LABS: Hepatitis C Ab w Rflx HCV PCR Negative (Negative)
[2023-02-14 16:25] LABS: Homocysteine 8.6 umol/L (5.0-13.9)
[2023-02-14 16:57] LABS: PSA, Ultrasensitive 0.39 ng/mL (<= 6.5)
[2023-02-17 16:22] LABS: Testosterone, Total 261 ng/dL (240-950)
== END 2023-02-13 03:28 | disposition home or self-care (01) ==
PROVIDERS: PCP Nurse Practitioner Family; Visit Provider Internal Medicine
DX: C61 Malignant neoplasm of prostate (principal)
CPT/HCPCS: 36415; 80053; 80061; 83090; 84153; 84403; 86803; 85025

== ENCOUNTER → 2023-02-25 08:35 | Outpatient (BNVA) | payer MEDICARE, SELFPAY | PROVIDERS: PCP Nurse Practitioner Family; Referring Provider Nurse Practitioner Family; Visit Provider Nurse Practitioner Gerontology | DX: Z09 Encounter for follow-up examination after completed treatment for conditions other than malignant neoplasm (principal); Z87.440 Personal history of urinary (tract) infections; Z85.46 Personal history of malignant neoplasm of prostate | CPT/HCPCS: 51798; 81003; 99214 ==

== ENCOUNTER → 2023-04-30 12:53 | Outpatient (BNVA) | payer MEDICARE, SELFPAY | PROVIDERS: PCP Nurse Practitioner Family; Referring Provider Nurse Practitioner Family; Visit Provider Nurse Practitioner Gerontology | DX: R97.20 Elevated prostate specific antigen [PSA] (principal); Z87.440 Personal history of urinary (tract) infections; Z85.46 Personal history of malignant neoplasm of prostate | CPT/HCPCS: 81003; 99213 ==

== ENCOUNTER 2023-06-04 03:47 | Outpatient (CLI) | payer MEDICARE, SELFPAY ==
[2023-06-04 14:57] LABS: Abs Immature Grans 0.01 10^3/uL (0.0-0.06); Absolute Basophil Count 0.02 10^3/uL (0.0-0.2); Absolute Eosinophil Count 0.09 10^3/uL (0.0-0.7); Absolute Lymphocyte Count 1.33 10^3/uL (1.2-3.4); Absolute Monocyte Count 0.39 10^3/uL (0.1-0.8); Absolute Neutrophil Count 2.54 10^3/uL (1.2-6.7); Basophils % 0.5; Eosinophils % 2.1; HCT 38.7 % (40.0-50.0); HGB 13.8 g/dL (13.5-17.5); Immature Grans % 0.2; Lymphocytes % 30.4; MCH 31.9 pg (27.0-33.0); MCHC 35.7 % (32.0-36.0); MCV 89 fL (80-95); MPV 9.4 fL (8.0-11.0); Monocytes % 8.9; Neutrophils % 57.9; Platelet Count 160 10^3/uL (130-400); RBC 4.33 10^6/uL (4.36-5.78); RDW 12.3 % (11.8-14.1); RDW-SD 40.2 fL; WBC 4.38 10^3/uL (4.4-10.8)
[2023-06-04 16:21] LABS: ALT 33 U/L (16-63); AST 27 U/L (15-37); Alkaline Phosphatase 61 U/L (46-116); Anion Gap 8.1 mmol/L (3-11); BUN 18 mg/dL (7-18); Bilirubin, Total 0.5 mg/dL (0.2-1.0); CO2 27.9 mmol/L (21.0-32.0); CREATININE 0.9 mg/dL (0.70-1.30); Chloride 106 mmol/L (98-107); Estimated GFR 90.74 (mL/min/1.73m2); Glucose 109 mg/dL (74-106); Sodium 142 mmol/L (136-145); Total Protein 7.3 g/dL (6.4-8.2)
[2023-06-06 16:51] LABS: PSA, Ultrasensitive 0.72 ng/mL (<= 6.5)
[2023-06-09 01:43] LABS: Testosterone, Total 197 ng/dL (240-950)
== END 2023-06-04 03:48 | disposition home or self-care (01) ==
PROVIDERS: PCP Nurse Practitioner Family; Visit Provider Nurse Practitioner Family
DX: C61 Malignant neoplasm of prostate (principal)
CPT/HCPCS: 36415; 80053; 84153; 84403; 85025

== ENCOUNTER 2023-10-30 02:55 | Outpatient (CLI) | payer MEDICARE, SELFPAY ==
[2023-10-30 13:34] LABS: Abs Immature Grans 0.02 10^3/uL (0.0-0.06); Absolute Basophil Count 0.02 10^3/uL (0.0-0.2); Absolute Eosinophil Count 0.04 10^3/uL (0.0-0.7); Absolute Lymphocyte Count 1.25 10^3/uL (1.2-3.4); Absolute Monocyte Count 0.41 10^3/uL (0.1-0.8); Absolute Neutrophil Count 3.75 10^3/uL (1.2-6.7); Basophils % 0.4; Eosinophils % 0.7; HCT 39.8 % (40.0-50.0); Immature Grans % 0.4; Lymphocytes % 22.8; MCH 30.6 pg (27.0-33.0); MCHC 35.2 % (32.0-36.0); MCV 87 fL (80-95); MPV 9.7 fL (8.0-11.0); Monocytes % 7.5; Neutrophils % 68.2; Platelet Count 158 10^3/uL (130-400); RBC 4.58 10^6/uL (4.36-5.78); RDW 12.1 % (11.8-14.1); RDW-SD 38.5 fL; WBC 5.49 10^3/uL (4.4-10.8)
[2023-10-30 14:07] LABS: ALT 36 U/L (16-63); AST 30 U/L (15-37); Albumin 4.1 g/dL (3.4-5.0); Alkaline Phosphatase 54 U/L (46-116); Anion Gap 7.1 mmol/L (3-11); BUN 20 mg/dL (7-18); Bilirubin, Total 0.6 mg/dL (0.2-1.0); CO2 27.9 mmol/L (21.0-32.0); CREATININE 0.9 mg/dL (0.70-1.30); Calcium 9.4 mg/dL (8.5-10.1); Chloride 104 mmol/L (98-107); Estimated GFR 90.74 (mL/min/1.73m2); Glucose 106 mg/dL (74-106); Potassium 4.2 mmol/L (3.5-5.1); Sodium 139 mmol/L (136-145); Total Protein 7.4 g/dL (6.4-8.2)
[2023-10-31 17:11] LABS: PSA, Ultrasensitive 0.26 ng/mL (<= 6.5)
[2023-11-04 09:44] LABS: Testosterone, Total 18 ng/dL (240-950)
== END 2023-10-30 02:56 | disposition home or self-care (01) ==
PROVIDERS: PCP Nurse Practitioner Family; Visit Provider Nurse Practitioner
DX: C61 Malignant neoplasm of prostate (principal)
CPT/HCPCS: 36415; 80053; 84153; 84403; 85025

== ENCOUNTER 2024-01-21 04:20 | Outpatient (CLI) | payer MEDICARE, SELFPAY ==
[2024-01-21 13:59] LABS: Abs Immature Grans 0.01 10^3/uL (0.0-0.06); Absolute Basophil Count 0.02 10^3/uL (0.0-0.2); Absolute Eosinophil Count 0.04 10^3/uL (0.0-0.7); Absolute Lymphocyte Count 1.42 10^3/uL (1.2-3.4); Absolute Monocyte Count 0.39 10^3/uL (0.1-0.8); Absolute Neutrophil Count 3.71 10^3/uL (1.2-6.7); Basophils % 0.4; Eosinophils % 0.7; HCT 38.8 % (40.0-50.0); HGB 14.1 g/dL (13.5-17.5); Immature Grans % 0.2; Lymphocytes % 25.4; MCH 31.8 pg (27.0-33.0); MCHC 36.3 % (32.0-36.0); MCV 88 fL (80-95); MPV 9.8 fL (8.0-11.0); Neutrophils % 66.3; Platelet Count 155 10^3/uL (130-400); RBC 4.43 10^6/uL (4.36-5.78); RDW 11.9 % (11.8-14.1); RDW-SD 38.5 fL; WBC 5.59 10^3/uL (4.4-10.8)
[2024-01-21 15:36] LABS: ALT 36 U/L (16-63); AST 31 U/L (15-37); Albumin 4.1 g/dL (3.4-5.0); Alkaline Phosphatase 63 U/L (46-116); Anion Gap 10.1 mmol/L (3-11); BUN 19 mg/dL (7-18); Bilirubin, Total 0.5 mg/dL (0.2-1.0); CO2 24.9 mmol/L (21.0-32.0); CREATININE 0.9 mg/dL (0.70-1.30); Calcium 9.3 mg/dL (8.5-10.1); Chloride 106 mmol/L (98-107); Estimated GFR 90.74 (mL/min/1.73m2); Glucose 118 mg/dL (74-106); Potassium 3.9 mmol/L (3.5-5.1); Sodium 141 mmol/L (136-145); Total Protein 7.3 g/dL (6.4-8.2)
[2024-01-22 18:13] LABS: PSA, Ultrasensitive 0.21 ng/mL (<= 6.5)
[2024-01-26 11:40] LABS: Testosterone, Total 13 ng/dL (240-950)
== END 2024-01-21 04:21 | disposition home or self-care (01) ==
PROVIDERS: PCP Nurse Practitioner Family; Visit Provider Nurse Practitioner
DX: C61 Malignant neoplasm of prostate (principal)
CPT/HCPCS: 36415; 80053; 84153; 84403; 85025

== ENCOUNTER 2024-02-09 10:05 | Outpatient (CLI) | payer MEDICARE, SELFPAY ==
--- NOTE | 2024-02-09 09:30 | DI.RAD_ITS ---
Exam(s) XR KNEE LT 3V AP,LAT,TIESHA EXAM: XR KNEE LT 3V AP,LAT,TIESHA CLINICAL HISTORY: L knee pain. TECHNIQUE: 2D digital imaging was performed of the left knee. Three images were obtained. AP, late ral and PA tunnel views were obtained. COMPARISON: No exams were available for comparison FINDINGS: BONES: No acute fracture is present. No bony destructive lesion is seen. JOINTS: There is mild narrowing of the medial femoral tibial joint. There is moderate narrowing of t he patellofemoral joint. Osteophytes are seen in the lateral femoral tibial and patellofemoral joint s. No joint effusion is seen. There are few density seen adjacent to the tibial spines which may rep resent loose bodies. SOFT TISSUE: Vascular calcifications are present. There also dystrophic calcifications in the soft t issues posteriorly. IMPRESSION: Moderate arthrosis of the left knee. DATA REPOSITORY: RADIATION DOSE DELIVERED:
== END 2024-02-09 10:06 | disposition home or self-care (01) ==
LOC: DIORS 02-10 07:48
PROVIDERS: PCP Family Medicine; Referring Provider Nurse Practitioner Family; Visit Provider Student in an Organized Health Care Education/Training Program
DX: M17.12 Unilateral primary osteoarthritis, left knee
CPT/HCPCS: 73562; 99213

== ENCOUNTER 2024-04-13 04:55 | Outpatient (CLI) | payer MEDICARE, SELFPAY ==
[2024-04-13 13:19] LABS: Abs Immature Grans 0.01 10^3/uL (0.0-0.06); Absolute Basophil Count 0.01 10^3/uL (0.0-0.2); Absolute Eosinophil Count 0.08 10^3/uL (0.0-0.7); Absolute Lymphocyte Count 1.24 10^3/uL (1.2-3.4); Basophils % 0.2 %; Eosinophils % 1.8 %; HCT 37.8 % (40.0-50.0); HGB 13.5 g/dL (13.5-17.5); Immature Grans % 0.2 %; Lymphocytes % 28.6 %; MCHC 35.7 % (32.0-36.0); MCV 90 fL (80-95); MPV 9.6 fL (8.0-11.0); Monocytes % 4.6 %; Neutrophils % 64.6 %; Platelet Count 157 10^3/uL (130-400); RBC 4.22 10^6/uL (4.36-5.78); RDW 11.9 % (11.8-14.1); RDW-SD 38.9 fL; WBC 4.33 10^3/uL (4.4-10.8)
[2024-04-13 13:50] LABS: ALT 38 U/L (16-63); AST 30 U/L (15-37); Alkaline Phosphatase 58 U/L (46-116); Anion Gap 12.6 mmol/L (3-11); BUN 20 mg/dL (7-18); Bilirubin, Total 0.6 mg/dL (0.2-1.0); CO2 24.4 mmol/L (21.0-32.0); CREATININE 0.9 mg/dL (0.70-1.30); Calcium 9.1 mg/dL (8.5-10.1); Chloride 108 mmol/L (98-107); Estimated GFR 90.74 (mL/min/1.73m2); Glucose 146 mg/dL (74-106); Potassium 3.7 mmol/L (3.5-5.1); Sodium 145 mmol/L (136-145); Total Protein 7.1 g/dL (6.4-8.2)
[2024-04-14 18:59] LABS: PSA, Ultrasensitive 0.17 ng/mL (<= 6.5)
[2024-04-16 15:01] LABS: Testosterone, Total 9.8 ng/dL (240-950)
== END 2024-04-13 04:56 | disposition home or self-care (01) ==
PROVIDERS: PCP Family Medicine; Visit Provider Nurse Practitioner
DX: C61 Malignant neoplasm of prostate (principal)
CPT/HCPCS: 36415; 80053; 84153; 84403; 85025

== ENCOUNTER → 2024-05-31 13:53 | Outpatient (BNVA) | payer MEDICARE, SELFPAY | PROVIDERS: PCP Family Medicine; Referring Provider Family Medicine; Visit Provider Nurse Practitioner Adult Health | DX: G56.03 Carpal tunnel syndrome, bilateral upper limbs (principal) | CPT/HCPCS: 95909; 99214 ==

== ENCOUNTER 2024-07-19 09:08 | Outpatient (CLI) | payer MEDICARE, SELFPAY ==
[2024-07-19 07:41] LABS: Abs Immature Grans 0.01 10^3/uL (0.0-0.06); Absolute Basophil Count 0.02 10^3/uL (0.0-0.2); Absolute Lymphocyte Count 1.27 10^3/uL (1.2-3.4); Absolute Monocyte Count 0.43 10^3/uL (0.1-0.8); Basophils % 0.5 %; Eosinophils % 2.4 %; HCT 39.6 % (40.0-50.0); HGB 13.8 g/dL (13.5-17.5); Immature Grans % 0.2 %; MCH 31.4 pg (27.0-33.0); MCHC 34.8 % (32.0-36.0); MCV 90 fL (80-95); MPV 9.6 fL (8.0-11.0); Monocytes % 10.2 %; Neutrophils % 56.7 %; Platelet Count 150 10^3/uL (130-400); RDW 12.2 % (11.8-14.1); RDW-SD 40.2 fL; WBC 4.23 10^3/uL (4.4-10.8)
[2024-07-19 08:04] LABS: ALT 34 U/L (16-63); AST 39 U/L (15-37); Alkaline Phosphatase 62 U/L (46-116); Anion Gap 5.7 mmol/L (3-11); BUN 18 mg/dL (7-18); Bilirubin, Total 0.58 mg/dL (0.2-1.0); CO2 28.3 mmol/L (21.0-32.0); CREATININE 0.8 mg/dL (0.70-1.30); Calcium 9.5 mg/dL (8.5-10.1); Chloride 104 mmol/L (98-107); Estimated GFR 93.45 (mL/min/1.73m2); Glucose 99 mg/dL (74-106); Potassium 4.5 mmol/L (3.5-5.1); Sodium 138 mmol/L (136-145); Total Protein 7.5 g/dL (6.4-8.2)
[2024-07-19 08:26] LABS: Calculated LDL 96 mg/dL (<100); Cholesterol 179 mg/dL (<200); HDL Cholesterol 59 mg/dL (40-60); Triglyceride 120 mg/dL (<150)
[2024-07-22 15:39] LABS: Testosterone, Total 82 ng/dL (240-950)
== END 2024-07-19 09:09 | disposition home or self-care (01) ==
LOC: LBO 09:10
PROVIDERS: Nurse Practitioner; PCP Family Medicine; Visit Provider Family Medicine
DX: E78.5 Hyperlipidemia, unspecified (principal); C61 Malignant neoplasm of prostate
CPT/HCPCS: 36415; 80053; 80061; 84153; 84403; 85025

== ENCOUNTER → 2024-07-29 10:51 | Outpatient (BNVA) | payer MEDICARE, SELFPAY | PROVIDERS: PCP Family Medicine; Referring Provider Family Medicine; Visit Provider Student in an Organized Health Care Education/Training Program | DX: G56.03 Carpal tunnel syndrome, bilateral upper limbs (principal) | CPT/HCPCS: 99213 ==

== ENCOUNTER → 2024-09-30 09:51 | Outpatient (BNVA) | payer MEDICARE, SELFPAY | PROVIDERS: PCP Family Medicine; Referring Provider Family Medicine; Visit Provider Physical Therapy Assistant | DX: Z12.11 Encounter for screening for malignant neoplasm of colon (principal); I10 Essential (primary) hypertension ==

== ENCOUNTER → 2024-10-11 15:24 | Outpatient (BNVA) | payer MEDICARE, SELFPAY | PROVIDERS: PCP Family Medicine; Referring Provider Family Medicine; Visit Provider Podiatrist | DX: L60.0 Ingrowing nail (principal); L60.3 Nail dystrophy; B35.1 Tinea unguium; M20.41 Other hammer toe(s) (acquired), right foot; M79.674 Pain in right toe(s) | CPT/HCPCS: 11720; 99203 ==

== ENCOUNTER 2024-10-19 10:31 | Outpatient (CLI) | payer MEDICARE, SELFPAY ==
[2024-10-19 10:31] LABS: Abs Immature Grans 0.02 10^3/uL (0.0-0.06); Absolute Basophil Count 0.02 10^3/uL (0.0-0.2); Absolute Eosinophil Count 0.09 10^3/uL (0.0-0.7); Absolute Lymphocyte Count 1.56 10^3/uL (1.2-3.4); Absolute Monocyte Count 0.53 10^3/uL (0.1-0.8); Absolute Neutrophil Count 2.54 10^3/uL (1.2-6.7); Basophils % 0.4 %; Eosinophils % 1.9 %; HCT 40.3 % (40.0-50.0); Immature Grans % 0.4 %; Lymphocytes % 32.8 %; MCH 31.3 pg (27.0-33.0); MCHC 34.7 % (32.0-36.0); MCV 90 fL (80-95); MPV 9.8 fL (8.0-11.0); Monocytes % 11.1 %; Neutrophils % 53.4 %; Platelet Count 147 10^3/uL (130-400); RBC 4.47 10^6/uL (4.36-5.78); RDW 12.6 % (11.8-14.1); RDW-SD 41.3 fL; WBC 4.76 10^3/uL (4.4-10.8)
[2024-10-19 11:21] LABS: ALT 36 U/L (16-63); AST 27 U/L (15-37); Alkaline Phosphatase 64 U/L (46-116); Anion Gap 6.9 mmol/L (3-11); BUN 22 mg/dL (7-18); Bilirubin, Total 0.65 mg/dL (0.2-1.0); CO2 28.1 mmol/L (21.0-32.0); CREATININE 0.9 mg/dL (0.70-1.30); Calcium 9.1 mg/dL (8.5-10.1); Chloride 108 mmol/L (98-107); Estimated GFR 90.18 (mL/min/1.73m2); Glucose 99 mg/dL (74-106); Potassium 4.1 mmol/L (3.5-5.1); Sodium 143 mmol/L (136-145); Total Protein 7.4 g/dL (6.4-8.2)
[2024-10-20 18:26] LABS: PSA, Ultrasensitive 0.34 ng/mL (<= 6.5)
[2024-10-22 13:12] LABS: Testosterone, Total 115 ng/dL (240-950)
== END 2024-10-19 10:32 | disposition home or self-care (01) ==
LOC: LBO 10:31
PROVIDERS: PCP Family Medicine; Visit Provider Nurse Practitioner
DX: C61 Malignant neoplasm of prostate (principal)
CPT/HCPCS: 36415; 80053; 84153; 84403; 85025

== ENCOUNTER 2024-10-22 13:03 | Day surgery (SDC) | payer MEDICARE, SELFPAY ==
--- NOTE | 2024-10-21 23:26 | COLE_ITS ---
Date of service: 10/22/24 Time of Service: 15:30 Colonoscopy Report Date of procedure: 10/22/24 Pre-op diagnosis general: CRC screaning/occ fecal incont/hx of prostectomy Post-op diagnosis procedure note: other (Adenomatous polyp/diverticula/mild chronic radiation proctitis) Surgeon: Rosalinda Negron Anesthesia Type: General:No Airway Estimated blood loss (mL): 2 Pathology: other Complications: None Disposition: same day Prep: Miralax/Dulcolax Retraction Time: 14 Procedure Description: After informed consent was obtained, explaining risks of the procedure, including but not limits to: bleeding, infections, complications of anesthesia, perforations (which may require antibiotics and /or surgery and stay in the hospital), and abdominal pain/cramping. The patient was taken to the procedure room and placed in a left decubitous position. Monitors were applied and a time out was done. The patients name, date of , procedure, allergies to medications and metal in their body was reviewed. The patient was then sedated. Once sedated and comfortable a rectal exam was done. External exam was normal. Internal exam revealed decreased sphincter tone and no palpable masses. Not palpable The previously lubricated Olympus scope was then introduced (see RN notes for scope number) and retrofelexed. No internal hemorrhoids were identified. The scope was then advanced to the cecum without difficulty. The TI and appendiceal orifice were identified. The scope was then slowly retracted over 14 minutes back into the rectum. Polyps: There were 2 flat, .5cm polyp was found in the cecum. This was removed with a cold biting forceps. All of the specimen was retrieved. This will be sent to pathology. There is no bleeding noted from the polypectomy site. Diverticula: pt had a few amount of small mouthed diverticula in the sigmoid colon. There were no signs of active bleeding or infection. The mucosa is pink and healthy w/ a normal vascular pattern. In the distal rectum he had some mild chronic proctitis or radiation associated vascular ectasia. The patient has not been having any pain or bleeding. There is no bleeding at the time of the scope. Biopsies were taken. Fulguration was not done. The scope was removed, and the patient was woken up and taken back to Same day surgery in stable condition. The patient tolerated the procedure well and there were no immediate complications. Follow up: The patient should follow up in 7 years, path pending, unless they develop changes in bowel habits or other new gastrointestinal complaints. Hollywood Bowel Prep Hollywood Bowel Prep Right Colon: 3 Left Colon: 3 Transverse Colon: 3 Total Score: 9
--- NOTE | 2024-10-21 23:27 | PDOC.DSDIS_ITS ---
Date of service: 10/22/24 Discharge Plan Disposition Patient Disposition: Home Condition: Good Discharge Details Reason For Visit: CRC screening Attending Provider: Rosalinda Negron Primary Care Provider: Yoan Saldaña Home Meds and New Rx's Prescriptions: Continued aspirin 81 mg tablet,delayed release (DR/EC) 81 mg PO DAILY ketoconazole 2 % cream 1 applic topical DAILY Qty: 120 6RF Rx Instructions: Apply to toenails once daily diclofenac sodium-menthol 1.5-10 % combo pack See Rx Instructions topical DIRECTED PRN (Reason: osteoarthrtis) Qty: 239 3RF Rx Instructions: 1 application topically as directed PRN; Use daily prn metoprolol succinate [Toprol XL] 100 mg tablet extended release 24 hr 100 mg PO DAILY Qty: 90 3RF rosuvastatin [Crestor] 20 mg tablet 20 mg PO DAILY Qty: 90 3RF lisinopril 5 mg tablet 5 mg PO DAILY Qty: 90 3RF turmeric root extract 500 mg capsule 500 mg PO BID lutein 20 mg capsule 20 mg PO DAILY Rx Instructions: give with meal/snack acetaminophen 500 mg capsule 500 mg PO DIRECTED PRN ibuprofen 200 mg capsule 200 mg PO DIRECTED PRN Rx Instructions: 400-600mg prn joint pain [id number]-xrhbyafp-D3-C-Mn 500-400-667 mg-mg-unit Capsule 1 cap PO DAILY multivitamin Capsule 1 cap PO DAILY Discontinued bisacodyl [Dulcolax (bisacodyl)] 5 mg tablet,delayed release (DR/EC) 5 mg PO ONCE Qty: 4 0RF Rx Instructions: Take per colonoscopy instructions provided by ordering providers office polyethylene glycol 3350 17 gram/dose powder 17 g PO ONCE Qty: 238 0RF Rx Instructions: Take per colonoscopy instructions provided by ordering providers office Discharge Instructions Additional Instructions: DSU Colonoscopy Post- Op Instructions Instructions for Everyone who is given Anesthesia: For your safety, please do the following for the next twenty-four (24) hours: *Do Not operate a motor vehicle (car, truck, motorcycle, etc.) *Do Not drink alcoholic beverages or use any recreational drugs for the first 24 hours or while taking pain medications. The medications in your body may have a reaction that can be dangerous. *Do Not make any important decisions or sign any important papers. Findings: x1 colon polyp mild radiation proctitis Follow up: My office will send you a letter in 3-4 wks time w/ the results of the pathology and when we want you to repeat the colonscopy. 1. No lifting over 20 pounds or strenuous activity for the first 24 hours after your procedure. After 24 hours there are no restrictions on your activity but you may feel fatigued for a few days. 2. After you arrive home you may have a light meal and return to your normal diet as you can tolerate it without feeling sick to your stomach. 3. You may have a bloated, gaseous feeling in your belly (abdomen) after a colonoscopy. Passing gas and belching will help. Walking or lying down on your left side with your knees flexed may relieve the discomfort. Call the office at [phone] (Office) or [phone] (Hospital) right away if you notice any of the following: a.Vomiting of blood or ?coffee ground stools?. b.Rectal bleeding 1Tbsp, blood clots or continuous bleeding. c.Severe belly (abdominal) pain. d.A hard distended belly (abdomen) and an inability to pass gas. 4. Please don?t expect to have a normal BM (bowel movement) for 2-3 days after your procedure. 5. If there are questions regarding the findings of your procedure, please contact your doctor 6. If you are unable to contact your doctor with a problem, contact the hospital at [phone]. 7. Continue all your regular medications unless directed otherwise. I understand the above instructions and have no questions. Signature of Patient or Adult Escort Name of Responsible Adult Escort Signature of Nurse Date/Time Activity:: see above Diet:: As Tolerated Discharge Orders Discharge Orders: Discharge Order (Routine); Ordered 10/22/24 Ordered By: Rosalinda Negron DS: Diagnosis Discharge Diagnosis (1) Hypertension: Status: Chronic (2) Coronary artery disease: Status: Chronic (3) Hyperlipidemia: Status: Acute (4) Obesity: Status: Chronic (5) Hard of hearing: Status: Chronic (6) Age-related nuclear cataract of both eyes: Status: Acute (7) History of prostate cancer: Status: Acute (8) Spinal stenosis: Status: Chronic (9) Myocardial infarction: (10) Adenomatous polyps: Status: Acute (11) Radiation proctitis: Status: Acute Asessment and Plan: The patient is seen and examined after their colonoscopy.? The patient has been able to pass gas.? They are not having abdominal pain.? They have been able to tolerate liquids and a snack.? They do not have any nausea or vomiting.? They are not having any chest pain or shortness of breath.??? They are not having any rectal bleeding. Their vital signs have been stable-see nursing notes. We discussed findings during their colonoscopy, and any biopsies that were done/polyps that were removed. The patient will be sent a letter with any biopsy results, and when to repeat the colonoscopy.-see discharge instructions. Patient was given explicit instructions to follow-up regarding colonoscopy-refer to discharge instructions.? We reviewed resumption of medications. Patient verbalized understanding and discharged in stable and satisfactory condition- See nursing notes.
--- NOTE | 2024-10-22 13:24 | ANES.PREOP_ITS ---
General Info Date of Service Date Performed: 10/22/24 Height: 5 ft 7 in Weight: 106.141 kg Body Mass Index (BMI): 36.6 Surgical Procedure: Operation Date: 10/22/24 12:20 Proposed Procedure Side Surgeon luzmaria Negron, DO Meds Allergies and Home Medications Allergies Allergy/AdvReac Type Severity Reaction Status Date / Time finasteride (From Proscar) Allergy Intermediate Scrotum Verified 10/22/24 13:39 swelling simvastatin Allergy Intermediate Other (See Verified 10/22/24 13:39 Comment) ezetimibe (From Zetia) AdvReac MUSCLE Verified 10/22/24 13:39 ACHES Home Medication ?Medication ?Instructions ?Recorded glucosamine 500 1 cap PO DAILY 01/24/19 wp-vxsgdflpu-nhxyxbxa comp 400 mg-D3 667 unit-C-Mn cap multivitamin 1 cap PO DAILY 01/24/19 acetaminophen 500 mg capsule 500 mg PO DIRECTED PRN 12/12/21 ibuprofen 200 mg capsule 200 mg PO DIRECTED PRN 12/12/21 lutein 20 mg capsule 20 mg PO DAILY 12/12/21 aspirin 81 mg tablet,delayed 81 mg PO DAILY 01/09/23 release diclofenac sodium 1.5 % topical See Rx Instructions topical 01/27/24 drops-menthol 10 % roll-on combo DIRECTED PRN osteoarthrtis #239 mL pack lisinopril 5 mg tablet 5 mg PO DAILY #90 tabs 01/27/24 metoprolol succinate 100 mg 100 mg PO DAILY #90 tabs 01/27/24 tablet,extended release 24 hr (Toprol XL) rosuvastatin 20 mg tablet (Crestor) 20 mg PO DAILY #90 tabs 01/27/24 turmeric root extract 500 mg 500 mg PO BID 07/27/24 capsule ketoconazole 2 % topical cream 1 applic topical DAILY #120 grams 10/11/24 Current Visit Medications: Current Medications Generic Name Dose Route Start Last Admin Trade Name Freq PRN Reason Stop Dose Admin Hyoscyamine Sulfate 0.125 mg 10/22/24 11:23 Hyoscyamine 0.125 Mg Sl/Oral/Chew SL 11/21/24 11:22 DIRECTED PRN IV Miscellaneous Supplies 1 each 10/22/24 06:00 Iv Access IV 10/22/24 23:59 DIRECTED JACI Ondansetron HCl 4 mg 10/22/24 11:23 Ondansetron 4 Mg/2 Ml Vial IVP 11/21/24 11:22 Q4H PRN PRN Nausea / Vomiting Sodium Chloride 0 ml 10/22/24 06:00 Normal Saline Flush 10 Ml Syr IV 10/22/24 23:59 PRN PRN Sodium Chloride 0 ml 10/22/24 06:00 Normal Saline 10 Ml Vial IJ 10/22/24 23:59 DIRECTED PRN Sterile Water 0 ml 10/22/24 06:00 Water,Injection,Sterile 10 Ml Vial IJ 10/22/24 23:59 DIRECTED PRN PFSH Active Problems Active Problems: Problem Status Onset Code Hammertoe of right foot Acute M20.41 Nail dystrophy Acute L60.3 Onychomycosis Acute B35.1 Regular astigmatism of both eyes Acute H52.223 Presbyopia Acute H52.4 Hypermetropia of both eyes Acute H52.03 Age-related nuclear cataract of both eyes Acute H25.13 Osteoarthritis of right knee Acute M17.11 Osteoarthritis of left knee Acute M17.12 Carpal tunnel syndrome, bilateral Acute G56.03 Obesity Chronic E66.9 Erectile dysfunction Acute N52.9 Spinal stenosis Chronic M48.00 Hard of hearing Chronic H91.90 Hyperlipidemia Acute E78.5 Hypertension Chronic I10 History of prostate cancer Acute 09/22/17 Z85.46 Coronary artery disease Chronic ~2000 I25.10 Trigger finger, right ring finger Acute M65.341 Medical History Medical History Brown's neuroma of both feet Eczema Ankles Myocardial infarction (~2000) 2000 Surgical History Surgical History Hx of left knee surgery partial meniscus tear Hx of vasectomy Hx of tonsillectomy Hx of cardiac catheterization 2001- no stent 2005, x1 stent placed Hx of appendectomy Hx of colonoscopy (11/19/17) 2013 Hx of heart artery stent Hx of prostatectomy (11/19/17) Tobacco Smoking/Tobacco Use Status: Never Passive smoking exposure: No Alcohol Alcohol Intake: current Alcohol intake frequency: a few times a month Alcohol type: wine Substance Use Substance use: Never Substance use type: does not use Vital Signs and Lab Results Lab Results Blood Type / Crossmatch: No Data to Display Complete Blood Count: White Blood Count 4.76 10^3/uL (4.4-10.8) 10/19/24 10:12 Red Blood Count 4.47 10^6/uL (4.36-5.78) 10/19/24 10:12 Hemoglobin 14.0 g/dL (13.5-17.5) 10/19/24 10:12 Hematocrit 40.3 % (40.0-50.0) 10/19/24 10:12 Platelet Count 147 10^3/uL (130-400) 10/19/24 10:12 Complete Metabolic Panel: Sodium 143 mmol/L (136-145) 10/19/24 10:12 Potassium 4.1 mmol/L (3.5-5.1) 10/19/24 10:12 Chloride 108 mmol/L (98-107) H 10/19/24 10:12 Carbon Dioxide 28.1 mmol/L (21.0-32.0) 10/19/24 10:12 BUN 22 mg/dL (7-18) H 10/19/24 10:12 Creatinine 0.9 mg/dL (0.70-1.30) 10/19/24 10:12 Est GFR (CKD-EPI 2020) 90.18 (mL/min/1.73m2) 10/19/24 10:12 Calcium 9.1 mg/dL (8.5-10.1) 10/19/24 10:12 Albumin 4.0 g/dL (3.4-5.0) 10/19/24 10:12 Glucose 99 mg/dL (74-106) 10/19/24 10:12 Liver Function Panel: Alanine Aminotransferase (ALT/SGPT) 36 U/L (16-63) 10/19/24 10: 12 Aspartate Amino Transf (AST/SGOT) 27 U/L (15-37) 10/19/24 10:12 Coagulation Panel: No Data to Display Cardiac Panel: No Data to Display Arterial Blood Gas: No Data to Display Venous Blood Gas: No Data to Display Pancreas Panel: No Data to Display Thyroid Panel: No Data to Display Infectious Disease: No Data to Display Blood Cultures: No Data to Display Toxicology Panel: No Data to Display Anesthesia Assessment and Plan Anesthesia History Personal History: No History of Anesthesia Complications Family History: No Family History of Anesthesia Complications Exercise Tolerance Exercise Tolerance: Metabolic Equivalents>4 Pertinent Negatives Pertinent Negatives: No Symptoms of GERD, No Major Cardiovascular Symptoms or Complaints, No Major Pulmonary Symptoms or Complaints and No History of CVA/TIA Cardiac & Pulmonary Exam Cardiac Exam: Normal S1/S2 Heart Sounds Pulmonary Exam: Clear Bilateral Breath Sounds Implantable Cardiac Device Does patient have a Pacemaker or an ICD?: No Airway Exam Known Difficult Airway: No Mallampati Class: 2 Mouth Opening: Normal (> 3cm) Thyromental Distance: Greater than 3 cm Neck Range of Motion: Full ROM Neck Circumference: Normal Teeth Condition: Normal Dentition ASA Classification ASA Score: ASA 2 Emergency Case?: No NPO Status NPO Status: NPO Clears >2 hours, Solids >8 hours Anesthesia Plan Resuscitation Status: Full Code Anesthesia Technique: General Anesthesia Airway Planned: Natural Airway Monitors Used: Standard Monitors
[2024-10-22 13:45] VITALS: BP 142/17; PULSE 78; RESP 18; TEMP 36.1; O2SAT 98
[2024-10-22] MEDS: Lactated Ringers 1,000 ML 80 ML IV (15:00)
[2024-10-22 15:04] VITALS: BMI 36.6
--- NOTE | 2024-10-22 15:17 | BOWEL_PTH ---
PATIENT: Maurilio Hurtado LOC: [facility] U#:[id number] AGE/SX: 74/M ROOM: RE10/22/[address]: Rosalinda Negron : 1950 BED: DIS: 10/22/2024 SPEC #: [id number] RECD: 10/22/24 16:06 STATUS: TORO RE #: [id number] DO: 10/22/24 15:[address]: Rosalinda Negron DEPT: Surgical Specimen RECD BY: Veronica Downs ENTERED: 10/22/24 16:07 SP TYPE: Bowel OTHR DR: Yoan Saldaña DO Tissues: 1 - BIOPSY BOWEL 2 - BIOPSY BOWEL Procedures: GROSS AND MICRO LEVEL 4 Comments: [id number]
[2024-10-22 15:35] VITALS: BP 107/62; PULSE 71; RESP 16; TEMP 36.7; O2SAT 99
--- NOTE | 2024-10-22 15:46 | W.ANESPOSTOP ---
Postoperative Evaluation Date, Time and Location Date Performed: 10/22/24 Time Performed: 15:35 Patient Location: Day Surgery Unit Vital Signs Most Recent Imported Vital Signs: Most Recent Vital Signs Temp Pulse Resp BP Pulse Ox 36.7 C 71 16 107/62 99 10/22/24 15:35 10/22/24 15:35 10/22/24 15:35 10/22/24 15:35 10/22/24 15:35 Pain Score Most Recent Pain Score: Most Recent Pain Score Pain Level 0 10/22/24 15:35 Assessment Mental Status: Awake (Alert & Oriented to Patient Baseline) Airway and Respiratory Function: Patent airway with normal (patient baseline) respiratory exam Cardiovascular Function: Hemodynamically Stable Hydration Status: Adequately Hydrated Nausea & Vomiting: No Nausea or Vomiting Pain: Pt. Denies Any Pain Peripheral Nerve Block: Patient did not receive a nerve block
[2024-10-22 16:07] VITALS: BP 160/72; PULSE 61; RESP 16; TEMP 36.6; O2SAT 100
== END 2024-10-22 16:45 | disposition home or self-care (01) ==
LOC: SUR 13:03
PROVIDERS: PCP Family Medicine; Visit Provider Surgery
PROC: 0DJD8ZZ Inspection of Lower Intestinal Tract, Via Natural or Artificial Opening Endoscopic (ICD-10-PCS; CPT 45378; principal; 2024-10-22 12:15)
DX: Z12.11 Encounter for screening for malignant neoplasm of colon (principal); I25.10 Atherosclerotic heart disease of native coronary artery without angina pectoris; K62.7 Radiation proctitis; D12.0 Benign neoplasm of cecum; K57.30 Diverticulosis of large intestine without perforation or abscess without bleeding
CPT/HCPCS: 45380; 88305; J2704

== ENCOUNTER 2025-01-17 10:26 | Outpatient (CLI) | payer MEDICARE, SELFPAY ==
[2025-01-17 11:01] LABS: Abs Immature Grans 0.01 10^3/uL (0.0-0.06); Absolute Basophil Count 0.03 10^3/uL (0.0-0.2); Absolute Eosinophil Count 0.12 10^3/uL (0.0-0.7); Absolute Lymphocyte Count 1.41 10^3/uL (1.2-3.4); Absolute Neutrophil Count 2.37 10^3/uL (1.2-6.7); Basophils % 0.7 %; Eosinophils % 2.7 %; HCT 41.2 % (40.0-50.0); HGB 14.8 g/dL (13.5-17.5); Immature Grans % 0.2 %; Lymphocytes % 31.8 %; MCH 31.6 pg (27.0-33.0); MCHC 35.9 % (32.0-36.0); MCV 88 fL (80-95); MPV 9.5 fL (8.0-11.0); Monocytes % 11.3 %; Neutrophils % 53.3 %; Platelet Count 141 10^3/uL (130-400); RBC 4.69 10^6/uL (4.36-5.78); RDW 12.1 % (11.8-14.1); RDW-SD 38.8 fL; WBC 4.44 10^3/uL (4.4-10.8)
[2025-01-17 11:24] LABS: ALT 38 U/L (16-63); AST 29 U/L (15-37); Albumin 4.1 g/dL (3.4-5.0); Alkaline Phosphatase 80 U/L (46-116); Anion Gap 6.8 mmol/L (3-11); BUN 15 mg/dL (7-18); Bilirubin, Total 0.6 mg/dL (0.2-1.0); CO2 29.2 mmol/L (21.0-32.0); CREATININE 0.9 mg/dL (0.70-1.30); Calcium 9.4 mg/dL (8.5-10.1); Chloride 107 mmol/L (98-107); Estimated GFR 90.18 (mL/min/1.73m2); Glucose 100 mg/dL (74-106); LDH 172 U/L (85-227); Potassium 4.9 mmol/L (3.5-5.1); Sodium 143 mmol/L (136-145); Total Protein 7.5 g/dL (6.4-8.2)
[2025-01-19 10:07] LABS: PSA, Ultrasensitive 0.81 ng/mL (<= 6.5)
[2025-01-21 12:16] LABS: Testosterone, Total 114 ng/dL (240-950)
== END 2025-01-17 10:27 | disposition home or self-care (01) ==
PROVIDERS: PCP Family Medicine; Visit Provider Nurse Practitioner Family
DX: C61 Malignant neoplasm of prostate (principal)
CPT/HCPCS: 36415; 80053; 84153; 84403; 83615; 85025

== ENCOUNTER → 2025-02-28 13:00 | Outpatient (BNVA) | payer MEDICARE, SELFPAY | PROVIDERS: PCP Family Medicine; Referring Provider Family Medicine; Visit Provider Podiatrist | DX: L60.0 Ingrowing nail (principal); L60.3 Nail dystrophy; B35.1 Tinea unguium; M20.41 Other hammer toe(s) (acquired), right foot | CPT/HCPCS: 99213 ==

== ENCOUNTER 2025-02-28 15:52 | Outpatient (REF) | payer MEDICARE, SELFPAY | END 2025-02-28 15:53 | disposition home or self-care (01) | LOC: LBN 15:52 | PROVIDERS: PCP Family Medicine; Visit Provider Nurse Practitioner | DX: L02.91 Cutaneous abscess, unspecified (principal) | CPT/HCPCS: 87070; 87205 ==

== ENCOUNTER → 2025-03-02 08:39 | Outpatient (BNVA) | payer MEDICARE, SELFPAY | PROVIDERS: PCP Family Medicine; Referring Provider Family Medicine; Visit Provider Physical Therapy Assistant | DX: L72.9 Follicular cyst of the skin and subcutaneous tissue, unspecified (principal) | CPT/HCPCS: 11403 ==

== ENCOUNTER 2025-03-14 08:11 | Emergency (ER) | payer MEDICARE, SELFPAY ==
[2025-03-14] VITALS (43 sets, daily range): BP systolic 127–192; BP diastolic 60–104; PULSE 45–71; RESP 10–21; TEMP 36.2; O2SAT 96–100
--- NOTE | 2025-03-14 08:00 | RT.EKG_ITS ---
APPROVED REPORT Exam: Resting ECG Reason for Exam: chest pain Patient Location: E HR:52 bpm ECG Measurements Heart Rate 52 AXIS RI 176 P 61 QRSd 95 QRS 7 QT 415 T 11 QTc 388 Conclusion Sinus bradycardia. 52 normal axis no stemi
[2025-03-14 08:39] LABS: Abs Immature Grans 0.02 10^3/uL (0.0-0.06); Absolute Basophil Count 0.02 10^3/uL (0.0-0.2); Absolute Eosinophil Count 0.07 10^3/uL (0.0-0.7); Absolute Lymphocyte Count 1.45 10^3/uL (1.2-3.4); Absolute Monocyte Count 0.48 10^3/uL (0.1-0.8); Absolute Neutrophil Count 2.41 10^3/uL (1.2-6.7); Basophils % 0.4 %; Eosinophils % 1.6 %; HCT 41.2 % (40.0-50.0); HGB 14.4 g/dL (13.5-17.5); Immature Grans % 0.4 %; Lymphocytes % 32.6 %; MCH 31.4 pg (27.0-33.0); MCV 90 fL (80-95); MPV 9.8 fL (8.0-11.0); Monocytes % 10.8 %; Neutrophils % 54.2 %; Platelet Count 148 10^3/uL (130-400); RBC 4.58 10^6/uL (4.36-5.78); RDW 12.4 % (11.8-14.1); RDW-SD 40.1 fL; WBC 4.45 10^3/uL (4.4-10.8)
[2025-03-14 09:25] LABS: ALT 33 U/L (16-63); AST 25 U/L (15-37); Albumin 3.8 g/dL (3.4-5.0); Alkaline Phosphatase 57 U/L (46-116); Anion Gap 8.2 mmol/L (3-11); BUN 18 mg/dL (7-18); Bilirubin, Total 0.5 mg/dL (0.2-1.0); CO2 24.8 mmol/L (21.0-32.0); CREATININE 0.9 mg/dL (0.70-1.30); Calcium 9.3 mg/dL (8.5-10.1); Chloride 108 mmol/L (98-107); Estimated GFR 90.18 (mL/min/1.73m2); Glucose 97 mg/dL (74-106); Lipase 33 U/L (<78); Potassium 4.2 mmol/L (3.5-5.1); Sodium 141 mmol/L (136-145); Total Protein 7.1 g/dL (6.4-8.2); Troponin I 11 ng/L (<or=76)
--- NOTE | 2025-03-14 09:37 | ED.GENADUL_ITS ---
Discharge Plan Disposition Patient Disposition: Home Condition: Stable Discharge Details Clinical Impression: Chest pain of uncertain etiology Primary Care Provider: Yoan Saldaña ED Provider: Glenn Simmons Home Meds and New Rx's Prescriptions: Continued aspirin 81 mg tablet,delayed release (DR/EC) 81 mg PO DAILY ketoconazole 2 % cream 1 applic topical DAILY Qty: 120 6RF Rx Instructions: Apply to toenails once daily diclofenac sodium-menthol 1.5-10 % combo pack See Rx Instructions topical DIRECTED PRN (Reason: osteoarthrtis) Qty: 239 3RF Rx Instructions: 1 application topically as directed PRN; Use daily prn turmeric root extract 500 mg capsule 500 mg PO BID lutein 20 mg capsule 20 mg PO DAILY Rx Instructions: give with meal/snack acetaminophen 500 mg capsule 500 mg PO DIRECTED PRN ibuprofen 200 mg capsule 200 mg PO DIRECTED PRN Rx Instructions: 400-600mg prn joint pain metoprolol succinate [Toprol XL] 100 mg tablet extended release 24 hr 100 mg PO DAILY Qty: 90 3RF lisinopril 5 mg tablet 5 mg PO DAILY Qty: 90 3RF rosuvastatin [Crestor] 20 mg tablet 20 mg PO DAILY Qty: 90 3RF feuv-vgeebe-hplhxfzv-D3-C-Mn 500-400-667 mg-mg-unit Capsule 1 cap PO DAILY multivitamin Capsule 1 cap PO DAILY Discharge Instructions Instructions: Chest Pain, Adult ED Additional Instructions: You were seen in the emergency department for the chest pain of uncertain cause, you do have cardiac history, your extensive cardiac workup is negative there is no blood clot in your lungs, you do have some bradycardia but no evidence of any heart block. I think you should follow-up closely with your primary care provider with a referral to cardiology for an updated echo and stress test, please return to the emergency department for any further episodes of chest pain especially with dizziness, near fainting, shortness of breath or any other emergent concerns. Referrals: [facility] [Provider Group] Yoan Saldaña DO [Primary Care Provider] - Discharge Data Discharge Date/Time-TO BE ENTERED AT DEPARTURE: 03/14/25 12:40 HPI General Date/Time Provider Initiated Documentation: 03/14/25 08:15 . HPI Narrative: 74 year-old male presents to ED today by EMS with a chief complaint of chest pain, just to the R of the sternum with onset around 0730 this morning. Quality described as dull aching, with some sweating and mild neck pain, no radiation to shortness of breath, near fainting, nausea/vomiting, exertional onset, fever, cough, abdominal pain. Severity is described as 8/10 at home- now 10. Palliating factors include given 324mg ASA by EMS and 2 doses of SL nitro with improvement, but unsure if it got better without them. Provoking factors include nothing specific. Events leading up to the incident/Associated Symptoms: Patient has history of MD in early , has 1 stent, and last EHCO/stress about 10 years ago. Patient not anticoagulated. Related Data Home Medications ?Medication ?Instructions ?Recorded ?Confirmed glucosamine 500 1 cap PO DAILY 01/24/19 03/14/25 yb-ncsmwtqzs-tgbdessq comp 400 mg-D3 667 unit-C-Mn cap multivitamin 1 cap PO DAILY 01/24/19 03/14/25 acetaminophen 500 mg capsule 500 mg PO DIRECTED PRN 12/12/21 03/14/25 ibuprofen 200 mg capsule 200 mg PO DIRECTED PRN 12/12/21 03/14/25 lutein 20 mg capsule 20 mg PO DAILY 12/12/21 03/14/25 aspirin 81 mg tablet,delayed 81 mg PO DAILY 01/09/23 03/14/25 release diclofenac sodium 1.5 % topical See Rx Instructions topical 01/27/24 03/14/25 drops-menthol 10 % roll-on combo DIRECTED PRN osteoarthrtis #239 mL pack turmeric root extract 500 mg 500 mg PO BID 07/27/24 03/14/25 capsule ketoconazole 2 % topical cream 1 applic topical DAILY #120 grams 10/11/24 03/14/25 lisinopril 5 mg tablet 5 mg PO DAILY #90 tabs 01/03/25 03/14/25 metoprolol succinate 100 mg 100 mg PO DAILY #90 tabs 01/03/25 03/14/25 tablet,extended release 24 hr (Toprol XL) rosuvastatin 20 mg tablet (Crestor) 20 mg PO DAILY #90 tabs 01/03/25 03/14/25 Previous Rx's ?Medication ?Instructions ?Recorded diclofenac sodium 1.5 % topical See Rx Instructions topical 03/19/24 drops-menthol 10 % roll-on combo DIRECTED PRN osteoarthrtis #239 mL pack ketoconazole 2 % topical cream 1 applic topical DAILY #120 grams 10/11/24 lisinopril 5 mg tablet 5 mg PO DAILY #90 tabs 01/03/25 metoprolol succinate 100 mg 100 mg PO DAILY #90 tabs 01/03/25 tablet,extended release 24 hr (Toprol XL) rosuvastatin 20 mg tablet (Crestor) 20 mg PO DAILY #90 tabs 01/03/25 Allergies Allergy/AdvReac Type Severity Reaction Status Date / Time finasteride (From Proscar) Allergy Intermediate Scrotum Verified 03/14/25 08:20 swelling simvastatin Allergy Intermediate Other (See Verified 03/14/25 08:20 Comment) ezetimibe (From Zetia) AdvReac MUSCLE Verified 03/14/25 08:20 ACHES General Stated Complaint: Chest Pain SOLO: 2 Review of Systems All systems reviewed & are unremarkable except as noted in HPI and below Exam Narrative Exam Narrative: GENERAL APPEARANCE: Well-nourished, non-toxic, awake and alert, atraumatic, no acute distress. SKIN: Warm, pink, dry, intact, without rashes/lesions/ulcerations. HEAD: Normocephalic, atraumatic, normal hair distribution for gender/age. EYES: Normal conjunctiva, no exudates on lids/lashes. ENT: Nares patent, no circumoral cyanosis, no facial swelling NECK: Supple, trachea midline, painless cervical ROM. LUNGS/CHEST: Lungs CTA bilaterally- no rhonchi/rales/wheezes diffusely, non- labored respirations, normal A/P diameter, symmetrical expansion, no chest wall deformity HEART (CV/PV): Regular rate and rhythm without murmur, no peripheral edema, no JVD. ABDOMEN: Soft, non-distended, no guarding, no tenderness. MSK: Normal ROM, no swelling/deformity to bilateral UEs or LEs, moving all extremities without weakness, no cyanosis, spine midline without tenderness, normal curvature. NEURO: Mental Status AAOx4 - alert to person, place, time, events No facial droop, no forehead involvement. Motor: No focal weakness - strength 5/5 in bilateral UEs and LEs, proximal and distal, symmetric. Sensory: sensation intact to light touch globally. Gait normal: patient ambulated without ataxia into ED room. PSYCH: euthymic, cooperative, pleasant, appropriate speech Course Vital Signs Vital signs: Vital Signs Temperature 36.2 C L 03/14/25 08:12 Pulse 58 L 03/14/25 08:12 Respiratory Rate 18 03/14/25 08:12 Blood Pressure 165/67 H 03/14/25 08:12 Pulse Oximetry 98 03/14/25 08:12 Temperature 36.2 C L 03/14/25 08:12 Temperature Source Temporal Artery Scan 03/14/25 08:12 Pulse 58 L 03/14/25 08:12 Respiratory Rate 16 03/14/25 08:16 Respiratory Effort Normal 03/14/25 08:16 Respiratory Depth Normal 03/14/25 08:16 Respiratory Pattern Normal 03/14/25 08:16 Blood Pressure 165/67 H 03/14/25 08:12 Blood Pressure Position Sitting 03/14/25 08:12 Pulse Oximetry 98 03/14/25 08:12 Oxygen Delivery Method Room Air 03/14/25 08:12 Oxygen Flow Rate 0 03/14/25 08:12 Pain Level 1 03/14/25 08:12 Lab/Test Results Lab/Test Results: Laboratory Tests Range/Units 03/14/25 08:25 WBC (4.4-10.8) 10^3/uL 4.45 RBC (4.36-5.78) 10^6/uL 4.58 Hgb (13.5-17.5) g/dL 14.4 Hct (40.0-50.0) % 41.2 MCV (80-95) fL 90 MCH (27.0-33.0) pg 31.4 MCHC (32.0-36.0) % 35.0 RDW (11.8-14.1) % 12.4 Plt Count (130-400) 10^3/uL 148 MPV (8.0-11.0) fL 9.8 Immature Gran % % 0.4 Neutrophils % % 54.2 Lymphocytes % % 32.6 Monocytes % % 10.8 Eosinophils % % 1.6 Basophils % % 0.4 Nucleated RBC % (0.0-0.3) % 0.0 Absolute Neutrophils (1.2-6.7) 10^3/uL 2.41 Absolute Lymphocytes (1.2-3.4) 10^3/uL 1.45 Absolute Monocytes (0.1-0.8) 10^3/uL 0.48 Absolute Eosinophils (0.0-0.7) 10^3/uL 0.07 Absolute Basophils (0.0-0.2) 10^3/uL 0.02 D-Dimer Cancelled Sodium (136-145) mmol/L 141 Potassium (3.5-5.1) mmol/L 4.2 Chloride (98-107) mmol/L 108 H Carbon Dioxide (21.0-32.0) mmol/L 24.8 Anion Gap (3-11) mmol/L 8.2 BUN (7-18) mg/dL 18 Creatinine (0.70-1.30) mg/dL 0.9 Est GFR (CKD-EPI 2020) (mL/min/1.73m2) 90.18 Glucose (74-106) mg/dL 97 Calcium (8.5-10.1) mg/dL 9.3 Total Bilirubin (0.2-1.0) mg/dL 0.5 AST (15-37) U/L 25 ALT (16-63) U/L 33 Alkaline Phosphatase (46-116) U/L 57 Troponin I (<or=76) ng/L 11 Total Protein (6.4-8.2) g/dL 7.1 Albumin (3.4-5.0) g/dL 3.8 Lipase (<78) U/L 33 Medical Decision Making This dictation utilizes [id number] dictation software and may contain unedited grammatical errors. 74 year-old male presents to ED today by EMS with a chief complaint of chest pain, just to the R of the sternum with onset around 0730 this morning. Quality described as dull aching, with some sweating and mild neck pain, no radiation to shortness of breath, near fainting, nausea/vomiting, exertional onset, fever, cough, abdominal pain. Severity is described as 8/10 at home- now 110. Palliating factors include given 324mg ASA by EMS and 2 doses of SL nitro with improvement, but unsure if it got better without them. Provoking factors include nothing specific. Events leading up to the incident/Associated Symptoms: Patient has history of MD in early 1999s, has 1 stent, and last EHCO/stress about 10 years ago. Patients' medical history: History of MD, history appendectomy, hyperlipidemia, hypertension. Family and social history: Remote history of smoking, no heavy EtOH use or drug use. Pertinent exam findings / vital signs include benign cardiopulmonary exam, slightly bradycardic in the 40s, benign abdomen, neuro intact. Differential / pathologies of concern include ACS, PE, pneumonia, pleurisy, costochondritis, chest pain, indigestion, biliary colic. Diagnostic studies of: - CBC, CMP, serial troponins, magnesium, D-dimer, EKG, CTA chest PE study, lipase. - CBC shows no acute abnormality - CMP shows no actionable abnormality - Serial troponins negative - Lipase negative - D-dimer mildly elevated 807, reflexed to CTA of chest - CTA chest shows no pulmonary embolism, no pleural effusion, no pneumonia - EKG without S1Q3T3, no ischemic changes Interventions of: - None. ED Course/Assessment/Plan: 74-year-old male had a brief episode of chest pain at home this morning was given aspirin and 2 doses of nitro by EMS en route and had significant improvement, 3-hour troponins are negative, patient has 1 stent but no other major risk factors, no evidence of PE, heart score is 4 but patient would prefer outpatient follow-up after discussion again shared decision making, he will update stress test and echocardiogram, strict return criteria for any return of chest pain Findings not consistent with ACS, PE, heart block, biliary colic, pancreatitis, pleurisy or pneumonia. Disposition of chest pain of uncertain etiology. Patient verbalized understanding of the plan and return to ED criteria and engaged in shared decision making. Medical Records Medical records reviewed: Yes I reviewed the patient's medical records. Imaging Data Radiologic Study: Attestation: I personally reviewed and interpreted this imaging study as follows: Imaging: CT Scan Radiologist's impression: EXAM: CT CHEST PE CTA CLINICAL HISTORY: elev d-dimer, CP. TECHNIQUE: Imaging Protocol: CT angiography of the chest was performed using pulmonary embolus protocol. Multi planar reconstructions were performed. CONTRAST MATERIAL: Intravenous: Omnipaque 350 Contrast volume: 100 cc COMPARISON: CR XR PORTABLE CHEST AP from 01/24/2019 FINDINGS: CHEST: PULMONARY ARTERIES: There are no intraluminal filling defects to suggest acute pulmonary emboli. LUNGS: There are no infiltrates nor evidence of pulmonary infarction.. There are no pleural effusions. MEDIASTINUM: There is no hilar nor mediastinal adenopathy. Visualized thyroid unremarkable. CARDIAC: Heart size is upper normal. There is no pericardial effusion. Moderate coronary artery calcification noted. Caliber of the thoracic aorta is within normal limits. There is no significant shift of the interventricular septum. PARTIALLY VISUALIZED UPPERMOST ABDOMEN: No obvious findings OSSEOUS: No significant osseous lesions.. IMPRESSION: 1. No evidence of acute pulmonary emboli. No evidence of pulmonary infarction.No pleural effusions. 2. Normal heart size. No pericardial effusion. Report called by myself to ER provider 03/14/2025 at 10:52 a.m. Lab Data Lab results reviewed: Yes I reviewed the patient's lab results. Labs: Laboratory Tests Range/Units 03/14/25 03/14/25 03/14/25 08:25 09:08 09:39 WBC (4.4-10.8) 10^3/uL 4.45 RBC (4.36-5.78) 10^6/uL 4.58 Hgb (13.5-17.5) g/dL 14.4 Hct (40.0-50.0) % 41.2 MCV (80-95) fL 90 MCH (27.0-33.0) pg 31.4 MCHC (32.0-36.0) % 35.0 RDW (11.8-14.1) % 12.4 Plt Count (130-400) 10^3/uL 148 MPV (8.0-11.0) fL 9.8 Immature Gran % % 0.4 Neutrophils % % 54.2 Lymphocytes % % 32.6 Monocytes % % 10.8 Eosinophils % % 1.6 Basophils % % 0.4 Nucleated RBC % (0.0-0.3) % 0.0 Absolute Neutrophils (1.2-6.7) 10^3/uL 2.41 Absolute Lymphocytes (1.2-3.4) 10^3/uL 1.45 Absolute Monocytes (0.1-0.8) 10^3/uL 0.48 Absolute Eosinophils (0.0-0.7) 10^3/uL 0.07 Absolute Basophils (0.0-0.2) 10^3/uL 0.02 D-Dimer Cancelled 807 H Sodium (136-145) mmol/L 141 Potassium (3.5-5.1) mmol/L 4.2 Chloride (98-107) mmol/L 108 H Carbon Dioxide (21.0-32.0) mmol/L 24.8 Anion Gap (3-11) mmol/L 8.2 BUN (7-18) mg/dL 18 Creatinine (0.70-1.30) mg/dL 0.9 Est GFR (CKD-EPI 2020) (mL/min/1.73m2) 90.18 Glucose (74-106) mg/dL 97 Calcium (8.5-10.1) mg/dL 9.3 Total Bilirubin (0.2-1.0) mg/dL 0.5 AST (15-37) U/L 25 ALT (16-63) U/L 33 Alkaline Phosphatase (46-116) U/L 57 Troponin I (<or=76) ng/L 11 11 Total Protein (6.4-8.2) g/dL 7.1 Albumin (3.4-5.0) g/dL 3.8 Lipase (<78) U/L 33 Range/Units /04/03 11:45 WBC (4.4-10.8) 10^3/uL RBC (4.36-5.78) 10^6/uL Hgb (13.5-17.5) g/dL Hct (40.0-50.0) % MCV (80-95) fL MCH (27.0-33.0) pg MCHC (32.0-36.0) % RDW (11.8-14.1) % Plt Count (130-400) 10^3/uL MPV (8.0-11.0) fL Immature Gran % % Neutrophils % % Lymphocytes % % Monocytes % % Eosinophils % % Basophils % % Nucleated RBC % (0.0-0.3) % Absolute Neutrophils (1.2-6.7) 10^3/uL Absolute Lymphocytes (1.2-3.4) 10^3/uL Absolute Monocytes (0.1-0.8) 10^3/uL Absolute Eosinophils (0.0-0.7) 10^3/uL Absolute Basophils (0.0-0.2) 10^3/uL D-Dimer Sodium (136-145) mmol/L Potassium (3.5-5.1) mmol/L Chloride (98-107) mmol/L Carbon Dioxide (21.0-32.0) mmol/L Anion Gap (3-11) mmol/L BUN (7-18) mg/dL Creatinine (0.70-1.30) mg/dL Est GFR (CKD-EPI 2020) (mL/min/1.73m2) Glucose (74-106) mg/dL Calcium (8.5-10.1) mg/dL Total Bilirubin (0.2-1.0) mg/dL AST (15-37) U/L ALT (16-63) U/L Alkaline Phosphatase (46-116) U/L Troponin I (<or=76) ng/L 9 Total Protein (6.4-8.2) g/dL Albumin (3.4-5.0) g/dL Lipase (<78) U/L Quality:SDOH Health Related Social Needs: No Data to Display PFSH All Active Problems (Updated 03/14/25 @ 12:26 by LANDON Duvall) Chest pain of uncertain etiology (Acute) Tubular adenoma of colon (Acute ~10/2024) Radiation proctitis (Acute) Adenomatous polyps (Acute) Hammertoe of right foot (Acute) Nail dystrophy (Acute) Onychomycosis (Acute) Regular astigmatism of both eyes (Acute) Presbyopia (Acute) Hypermetropia of both eyes (Acute) Age-related nuclear cataract of both eyes (Acute) Osteoarthritis of right knee (Acute) Osteoarthritis of left knee (Acute) Carpal tunnel syndrome, bilateral (Acute) Obesity (Chronic) Erectile dysfunction (Acute) Spinal stenosis (Chronic) Hard of hearing (Chronic) Hyperlipidemia (Acute) Hypertension (Chronic) History of prostate cancer (Acute 09/22/17) S/p prostatectomy, radiation, & Lupron; completed 11/19/17 Last Lupron 05/04/20 Coronary artery disease (Chronic ~2000) MD s/p stent placement x1 Trigger finger, right ring finger (Acute) Medical History Brown's neuroma of both feet Eczema Ankles Myocardial infarction (~2000) 2001 Surgical History Hx of left knee surgery partial meniscus tear Hx of vasectomy Hx of tonsillectomy Hx of cardiac catheterization 2000- no stent 2004, x1 stent placed Hx of appendectomy Hx of colonoscopy (10/2024) 2013 Hx of heart artery stent Hx of prostatectomy (11/19/17) Family History Father Substance use disorder Hypertension Sister Depression Diabetes Mother Heart disease Hypertension Social History Smoking/Tobacco Use Status: Never Smoking risk assessment performed?: Yes Alcohol Intake: current Alcohol Intake frequency: a few times a month Alcohol type: wine Drug use: Never Substance use type: does not use Adopted: No Caregiver/Support person: No Foster care: No Household members: spouse Housing: house Number of Children: 2 number of grandchildren: 4 Communication Needs: Hard of Hearing Education Level: vocational Do you need help understanding health information?: Rarely current occupation: Retired ([employer]) Pets and animals: Yes Pets and animals: dog(s) and farm animals Sexually active: Yes Do you think of yourself as: straight/heterosexual Current gender identity: male What is your relationship status?: How often do you talk on the phone with friends or family?: once per week How often do you get together with friends or relatives?: twice per week Do you belong to any clubs or organized social groups?: yes Panel score (0-1 are the most socially isolated patients): 3 What type of physical activity do you participate in: other Details: pickleball Duration: 60-90 minutes/day Frequency: 1-2 times per week Tamara/Jehovah'S Witness: Tenriism Special tamara needs: No Seatbelt use: always Helmet use: Yes Helmet use: always Drive 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
[2025-03-14 09:41] LABS: D-Dimer 807 ng/mlFEU (<500)
--- NOTE | 2025-03-14 09:45 | DI.CT_ITS ---
Exam(s) CT CHEST PE CTA EXAM: CT CHEST PE CTA CLINICAL HISTORY: elev d-dimer, CP. TECHNIQUE: Imaging Protocol: CT angiography of the chest was performed using pulmonary embolus abraham col. Multi planar reconstructions were performed. CONTRAST MATERIAL: Intravenous: Omnipaque 350 Contrast volume: 100 cc COMPARISON: CR XR PORTABLE CHEST AP from 01/24/2019 FINDINGS: CHEST: PULMONARY ARTERIES: There are no intraluminal filling defects to suggest acute pulmonary emboli. LUNGS: There are no infiltrates nor evidence of pulmonary infarction.. There are no pleural effusions . MEDIASTINUM: There is no hilar nor mediastinal adenopathy. Visualized thyroid unremarkable. CARDIAC: Heart size is upper normal. There is no pericardial effusion. Moderate coronary artery violetta cification noted. Caliber of the thoracic aorta is within normal limits. There is no significant sh ift of the interventricular septum. PARTIALLY VISUALIZED UPPERMOST ABDOMEN: No obvious findings OSSEOUS: No significant osseous lesions.. IMPRESSION: 1. No evidence of acute pulmonary emboli. No evidence of pulmonary infarction.No pleural effusions. 2. Normal heart size. No pericardial effusion. Report called by myself to ER provider 03/14/2025 at 10:52 a.m. RADIATION DOSE DELIVERED: 137.56mGy.cm Total DLP DATA REPOSITORY: All CT scans at this facility are submitted to the National Radiology Data Registry (NRDR) Dose Index Registry (DIR) with the [employer] (ACR). RADIATION OPTIMIZATION: All CT scans at this facility use at least one of these dose optimization te chniques: automated exposure control; mA and/or kV adjustment per patient size (includes targeted exa ms where dose is matched to clinical indication); or iterative reconstruction.
[2025-03-14 10:11] LABS: Troponin I 11 ng/L (<or=76)
[2025-03-14] MEDS: Omnipaque 350 MG/ML 100 ML BTL IJ (10:26)
[2025-03-14] MEDS: Normal Saline - Diluent 50 ML VIAL IJ (10:27)
[2025-03-14 12:17] LABS: Troponin I 9 ng/L (<or=76)
== END 2025-03-14 12:40 | disposition home or self-care (01) ==
PROVIDERS: Emergency Provider Physician Assistant; PCP Family Medicine
DX: R07.9 Chest pain, unspecified (principal); R00.1 Bradycardia, unspecified; I25.2 Old myocardial infarction; Z95.5 Presence of coronary angioplasty implant and graft; I10 Essential (primary) hypertension
CPT/HCPCS: 36415; 71275; 80053; 83690; 93005; 99285; 84484; 85025; 85379; 93010; 99284; J3490

== ENCOUNTER 2025-04-18 02:33 | Outpatient (CLI) | payer MEDICARE, SELFPAY ==
[2025-04-18 13:44] LABS: Abs Immature Grans 0.01 10^3/uL (0.0-0.06); Absolute Basophil Count 0.02 10^3/uL (0.0-0.2); Absolute Eosinophil Count 0.08 10^3/uL (0.0-0.7); Absolute Lymphocyte Count 1.54 10^3/uL (1.2-3.4); Absolute Monocyte Count 0.41 10^3/uL (0.1-0.8); Absolute Neutrophil Count 2.46 10^3/uL (1.2-6.7); Basophils % 0.4 %; Eosinophils % 1.8 %; HCT 38.8 % (40.0-50.0); HGB 13.4 g/dL (13.5-17.5); Immature Grans % 0.2 %; Lymphocytes % 34.1 %; MCH 30.5 pg (27.0-33.0); MCHC 34.5 % (32.0-36.0); MCV 88 fL (80-95); MPV 9.5 fL (8.0-11.0); Monocytes % 9.1 %; Neutrophils % 54.4 %; Platelet Count 151 10^3/uL (130-400); RBC 4.39 10^6/uL (4.36-5.78); RDW 12.6 % (11.8-14.1); WBC 4.52 10^3/uL (4.4-10.8)
[2025-04-18 14:04] LABS: ALT 30 U/L (16-63); AST 30 U/L (15-37); Albumin 4.1 g/dL (3.4-5.0); Alkaline Phosphatase 60 U/L (46-116); Anion Gap 6.8 mmol/L (3-11); BUN 20 mg/dL (7-18); Bilirubin, Total 0.7 mg/dL (0.2-1.0); CO2 27.2 mmol/L (21.0-32.0); CREATININE 0.8 mg/dL (0.70-1.30); Chloride 106 mmol/L (98-107); Estimated GFR 93.45 (mL/min/1.73m2); Glucose 109 mg/dL (74-106); LDH 184 U/L (85-227); Potassium 4.3 mmol/L (3.5-5.1); Sodium 140 mmol/L (136-145); Total Protein 7.2 g/dL (6.4-8.2)
[2025-04-20 21:55] LABS: PSA, Ultrasensitive 1.4 ng/mL (<= 6.5)
[2025-04-23 16:41] LABS: Testosterone, Total 104 ng/dL (240-950)
== END 2025-04-18 02:34 | disposition home or self-care (01) ==
PROVIDERS: Nurse Practitioner; PCP Family Medicine; Visit Provider Nurse Practitioner Family
DX: C61 Malignant neoplasm of prostate (principal); Z79.818 Long term (current) use of other agents affecting estrogen receptors and estrogen levels
CPT/HCPCS: 36415; 80053; 84153; 84403; 83615; 84154; 85025

== ENCOUNTER 2025-06-20 01:24 | Outpatient (CLI) | payer MEDICARE, SELFPAY ==
--- NOTE | 2025-06-20 | DI.NM_ITS ---
APPROVED REPORT Exam: Exercise Treadmill Patient Location: Out-Patient Room/Bed: Stress Nurse: Kalina Casanova RN Ordering Provider:[facility], Contact Number: BMI: 36.48 Baseline Rhythm: Sinus Bradycardia Comment: Occasional PVC's Indications: CAD, atypical chest pain Medical History Medical History: Obesity, HLD, HTN, CAD, SC Cardiac Medications: Aspirin, metoprolol succinate, lisinopril, rosuvastatin Allergies: Proscar, simvastatin, zetia Cardiac Risk Factors: Family hx, HTN, HLD, CVD, obesity Previous Cardiac Procedures: S/P stent x 1 (2000) Pretest Chest Pain Characteristics: None Exercise History: Physically active Physical Disabilities: Bilateral knees Lung Sounds: Clear to auscultation Heart Sounds: Bradycardia Stress Test Details Test: Exercise stress testing was performed using a Navneet protocol. Nuclear Acquisition: Rest Tc-99m/Stress Tc-99m 1 day Rest Isotope: Tc-99m Sestamibi. Dose: 10.0 Date: 06/20/2025 Injection Time: 0845 Stress Isotope: Tc-99m Sestamibi. Dose: 32.0 Date: 06/20/2025 Injection Time: 1018 HR Resting HR Supine: 48 bpm Max Heart Rate (APMHR): 146 bpm Resting HR Standin bpm Target HR (85% APMHR): 124 bpm Max HR Achieved: 132 bpm % of APMHR: 90 Recovery HR: 81 bpm HR response to stress: Normal HR response to stress BP Resting BP Supine: 144/62 mmHg Resting BP Standin/68 mmHg Max BP: 198/58 mmHg Recovery BP: 142/62 mmHg BP response to stress: Normal blood pressure response to stress. ECG Resting ECG: Sinus Bradycardia Ectopy: Occasional PVC's Stress ECG: Sinus Tachycardia ST Change: No significant ST segment changes noted Arrhythmia: Occasional PVC's, couplets Recovery ECG: Sinus Rhythm Recovery ST Change: No significant ST segment changes noted Recovery Arrhythmia: Occasional PVC's, bigeminey, couplets Clinical Reason for Termination: Target HR Achieved, SOB Stress Symptoms: severe SOB Exercise duration: 09 min00 sec Highest Stage Reached: Stage 3: 3.4 mph at 14% grade. Exercise capacity: 10.43 METs Angina Score: None Rate Pressure Product: [id number] Stress ECG Conclusion 1. 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 Patient exercised on the Navneet protocol and completed a workload of 10 METS 3. Normal heart rate and blood pressure response to exercise. The patient achieved 90% of maximum predicted heart rate for age 4. There was no electrocardiographic evidence of myocardial ischemia 5. PVCs were noted 6. See MPI report Stress Test Summary STAGE Time (mins) Speed (mph) Grade (%) HR BP SpO2 SYMPTOMS METS Supine 48 144/62 Standing 60 162/68 1 3 1.7 10 97 4.5 2 6 2.5 12 117 152/82 7 3 9 3.4 14 129 10 1 min recovery 92 198/58 3 min recovery 66 168/56 6 min recovery 81 142/62 Treadmill stopped r/t target HR acheived and severe SOB. All symtpoms resolved by test end. Patient proceeded to imagaing ambulatory in no apparent distress. MPI Conclusion Myocardial perfusion was normal. There was no ischemia or evidence of prior infarction Overall left ventricular systolic function was normal with normal wall motion
== END 2025-06-20 01:44 ==
LOC: DI 01:24
PROVIDERS: PCP Family Medicine; Visit Provider Internal Medicine Cardiovascular Disease
DX: I25.10 Atherosclerotic heart disease of native coronary artery without angina pectoris (principal)
CPT/HCPCS: 78452; 93016; 93018; 93017

== ENCOUNTER → 2025-06-27 12:59 | Outpatient (BNVA) | payer MEDICARE, SELFPAY | PROVIDERS: PCP Family Medicine; Referring Provider Family Medicine; Visit Provider Podiatrist | DX: L60.0 Ingrowing nail (principal); B35.1 Tinea unguium; L60.3 Nail dystrophy; M20.41 Other hammer toe(s) (acquired), right foot; M20.42 Other hammer toe(s) (acquired), left foot; L84 Corns and callosities; M79.674 Pain in right toe(s); L85.8 Other specified epidermal thickening | CPT/HCPCS: 99213 ==

== ENCOUNTER 2025-07-19 11:48 | Outpatient (CLI) | payer MEDICARE, SELFPAY ==
[2025-07-19 13:49] LABS: Abs Immature Grans 0.02 10^3/uL (0.0-0.06); HCT 40.6 % (40.0-50.0); HGB 14.3 g/dL (13.5-17.5); Immature Grans % 0.4 %; MCH 31.3 pg (27.0-33.0); MCHC 35.2 % (32.0-36.0); MCV 89 fL (80-95); MPV 9.5 fL (8.0-11.0); Platelet Count 161 10^3/uL (130-400); RBC 4.57 10^6/uL (4.36-5.78); RDW 12.1 % (11.8-14.1); RDW-SD 39.3 fL; WBC 5.36 10^3/uL (4.4-10.8)
[2025-07-19 14:45] LABS: ALT 33 U/L (16-63); AST 27 U/L (15-37); Albumin 4.3 g/dL (3.4-5.0); Alkaline Phosphatase 59 U/L (46-116); Anion Gap 6.7 mmol/L (3-11); BUN 17 mg/dL (7-18); Bilirubin, Total 0.7 mg/dL (0.2-1.0); CO2 29.3 mmol/L (21.0-32.0); Calcium 9.3 mg/dL (8.5-10.1); Chloride 104 mmol/L (98-107); Estimated GFR 89.62 (mL/min/1.73m2); Glucose 116 mg/dL (74-106); Potassium 4.1 mmol/L (3.5-5.1); Sodium 140 mmol/L (136-145); Total Protein 7.5 g/dL (6.4-8.2)
== END 2025-07-19 11:49 | disposition home or self-care (01) ==
PROVIDERS: PCP Family Medicine; Visit Provider Nurse Practitioner
DX: C61 Malignant neoplasm of prostate (principal); Z79.818 Long term (current) use of other agents affecting estrogen receptors and estrogen levels
CPT/HCPCS: 36415; 80053; 84153; 84403; 85025

== ENCOUNTER 2025-10-17 01:28 | Outpatient (CLI) | payer MEDICARE, SELFPAY ==
[2025-10-17 13:51] LABS: Abs Immature Grans 0.01 10^3/uL (0.0-0.06); HCT 39.0 % (40.0-50.0); HGB 13.8 g/dL (13.5-17.5); Immature Grans % 0.2 %; MCH 31.2 pg (27.0-33.0); MCHC 35.4 % (32.0-36.0); MCV 88 fL (80-95); MPV 9.8 fL (8.0-11.0); Platelet Count 155 10^3/uL (130-400); RBC 4.42 10^6/uL (4.36-5.78); RDW 11.9 % (11.8-14.1); RDW-SD 38.7 fL; WBC 5.01 10^3/uL (4.4-10.8)
[2025-10-17 14:37] LABS: ALT 30 U/L (10-49); AST 31 U/L (<34); Albumin 4.4 g/dL (3.2-5.0); Alkaline Phosphatase 54 U/L (46-116); Anion Gap 8.6 mmol/L (3-11); BUN 17 mg/dL (9-23); Bilirubin, Total 0.80 mg/dL (0.2-1.2); CO2 28.4 mmol/L (20.0-31.0); Calcium 9.1 mg/dL (8.3-10.6); Chloride 107 mmol/L (98-107); Glucose 105 mg/dL (74-106); Potassium 4.1 mmol/L (3.5-5.1); Sodium 144 mmol/L (136-145); Total Protein 6.7 g/dL (5.7-8.2)
== END 2025-10-17 01:29 | disposition home or self-care (01) ==
PROVIDERS: PCP Family Medicine; Visit Provider Nurse Practitioner
DX: Z79.818 Long term (current) use of other agents affecting estrogen receptors and estrogen levels (principal); C61 Malignant neoplasm of prostate
CPT/HCPCS: 36415; 80053; 84153; 84403; 85025